=== PATIENT | female | born 1950 | race Caucasian/White ===

== ENCOUNTER 2016-04-10 12:12 | Inpatient (IN) | payer MEDICARE, MEDICAID ==
[2016-04-10] MEDS ORDERED: NS 0.9% 1000 ML* 1,000 ML IV ONE ×2 (13:07→17:01)
[2016-04-10] MEDS ORDERED: Albuterol/Ipratropium NEB.SOL* Albuterol 2.5 MG/Ipratropium 0.5 MG 3 ML INH ONE ×2 (13:07→15:07)
--- NOTE | 2016-04-10 14:00 | RAD ---
Indication: Cough, shortness of breath. 2 views of the chest are reviewed. No mediastinal shift is noted. Heart is of normal size and configuration. Lung orosco appear clear. There is flattening of the diaphragms is chronic pleural changes. IMPRESSION: No active cardiopulmonary disease is noted.
--- NOTE | 2016-04-10 14:02 | RAD ---
Indication: Cough, back pain. 3 views of lumbar spine are reviewed. No prior study is available for comparison. There is mild compression of the L3 superior endplate of less than 25%. There is also depression of the superior endplate of L1 of proximal a 25-50%. Age of these are undetermined. Diffuse osteopenia is noted. IMPRESSION: Endplate compression of the superior endplate of L3 of less than 25%. Compression of the L1 vertebra of 25-50%. Age of these are undetermined.
--- NOTE | 2016-04-10 14:03 | RAD ---
Indication: Cough, shortness of breath. 2 views of the sacrum and coccyx demonstrates no fracture. Diffuse osteopenia is noted. IMPRESSION: No definite fracture noted.
[2016-04-10 14:21] LABS: Hematocrit 45 % (35-47); Hemoglobin 14.8 g/dl (12.0-16.0); Mean Corpuscular HGB Conc 33 g/dl (31-36); Mean Corpuscular Hemoglobin 31 pg (27-31); Mean Corpuscular Volume 92 fL (80-97); Mean Platelet Volume 10 um3 (7.4-10.4); Red Blood Count 4.85 10^6/ul (4.0-5.4); Red Cell Distribution Width 14 % (10.5-15); White Blood Count 8.8 10^3/ul (3.5-10.8)
[2016-04-10 14:33] LABS: C Reactive Protein 7.85 mg/L (< 5.00); Calcium 10.1 mg/dL (8.6-10.3); EGFR African American 159.2 (>60); EGFR Non-African American 123.8 (>60); Globulin 3.9 g/dL (2-4); Potassium 3.6 mmol/L (3.5-5.0); Total Bilirubin 1.2 mg/dL (0.2-1.0); Total Protein 7.9 g/dL (6.4-8.9)
[2016-04-10 14:34] LABS: Troponin I 0.01 ng/mL (<0.04)
[2016-04-10] MEDS ORDERED: Adenosine* 3 MG/ML VIAL ONE (14:42)
[2016-04-10] MEDS ORDERED: Diltiazem IV* 5 MG/ML 5 ML VIAL (for loading dose/IV Push) (25 MG) ONE (14:50)
[2016-04-10] MEDS ORDERED: Diltiazem DRIP* 100 MG/100 ML ADDV.BAG IVPB ONE ×2 (14:50→15:11)
[2016-04-10] MEDS ORDERED: Diltiazem DRIP* 100 ML IVPB ONE (14:50)
[2016-04-10 15:22] LABS: PCO2 Arterial 84 mmHg (35-45)
[2016-04-10] MEDS ORDERED: Morphine INJ* 4 MG/ML 1 ML CARPUJECT ONE (15:32)
[2016-04-10] MEDS ORDERED: Amiodarone IV VIAL* 3 ML ONE (15:44)
[2016-04-10] MEDS ORDERED: Morphine INJ* 4 MG/ML 1 ML CARPUJECT IV ONE ×2 (15:45→16:01)
[2016-04-10] MEDS ORDERED: Amiodarone 150 MG IVPREMIX* 150 MG/100 ML BAG IV ONE (16:01)
[2016-04-10] MEDS ORDERED: Morphine INJ* 4 MG/ML 1 ML CARPUJECT IV PRN (16:19)
--- NOTE | 2016-04-10 16:41 | HP ---
H&P (Free Text) History and Physical: CRITICAL CARE MEDICINE DATE: 04/10/16 TIME: 1525 PRIMARY CARE PROVIDER: Saira REFERRING PROVIDER: Ben REASON/CHIEF COMPLAINT: sob HISTORY OF PRESENT ILLNESS: 65 F with chronic resp failure on 4L O2 at home followed by Dr. Delgado, presenting with back pain that she was trying to have evaluated as outpt but was getting worsening sob and evaluated in ED at family request. Initially had HR into 120s on arrival, and then went into 170s. She had labored breathing and ultimately placed on bipap. ED was concerned for intubation needs but pt declined. She was given adenosine revealing aflutter. She continued with 2:1 aflutter and resp failure. ICU consulted. Daughter with pt on my arrival. PHYSICAL EXAM: Vital Signs: Reviewed. Hr 162 aflutter. SBP ~100. MV on bipap 12/5 at 50% was about 20lpm. She had great volumes actual. Neurologic: she is otherwise thin and frail. Look smuch older then age. She is in mod distress. Able to communicate. Nonfocal. HEENT: anicteric, mm dry. Cardiovascular: very tachy, no m appreciated. Respiratory: just course f/low bl no wheeze now rales Abdomen: soft, nt Extremities: warm, very dry skin. Could not roll her to eval back better. Access: 2 per We discussed her ailments and plans. Given 4mg morphine at my request. Cardizem gtt was on at 5mg and we inc to 10mg. BP softer. Pt maintaining. Given amiodarone 150mg as we discussed potential cardioversion. Pt finally converted in ED to ST. Given another round of morphine for her comfort and maintained on bipap. Admit to ICU. REVIEW OF SYSTEMS: As per HPI. States she has been feeling unwell. Always with cough. Mild fever on admit. PAST MEDICAL HISTORY: As per HPI. COPD, Depression/anxiety. MEDICATIONS: Reviewed. ALLERGIES: NKDA SOCIAL HISTORY: Reviewed. Just moved to [place] about 1 year ago. Daughter present but states pts son (Juan Carlos) is proxy. FAMILY HISTORY: Noncontributory at present. LABS: Reviewed. IMAGING: Reviewed. CT reviewed from prior. CXR with chronic dz. ECG: regular narrow complex tachycardia. MEDICATIONS: Reviewed. ASSESSMENT: 65 F Acute on chronic hypercarbic respiratory failure COPD exac Aflutter with RVR Depression/anxiety PLAN: Neurologic: morphine for comfort now and dec sympathetics if able. xanax prn. MS otherwise pretty good. Cardiovascular: converted with amio. Cardizem po for now to maintain as able. Hopefully if resp improves hr will stabilize. Can consider echo needs and longer term concerns after she stabilizes. 1L NS and then try to reserve IVF. May need a cards eval and f/u ultimately. 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 bipap today and tonight. can come off for liquids tonight. steroid course to prednisone tomorrow for a short course although benefit unclear as not much wheeze. nebs atc. add spiriva to her regimen. Gastrointestinal: liquids and advance when ready. Renal/Metabolic: lytes ok. Infectious Disease: No real evidence to infection. f/u and can consider copd adjunctive abx but would rather reserve. Hematology: stable. hsq Endocrine: steroids. f/u glu Musculoskeletal: f/u back pain, but seems more chronic osteopenia related. Psych/Social: daughter updated and pt expresses understanding Supportive and preventative care as ordered. Vaccine: f/u eval SUP: po VTE prophylaxis: heparin Disposition: ICU tonight Code Status: DNR/DNI, discussed with pt and daughter present. Pt does consent to bipap use and cardioversion if needed. Critical Care Time: 75min Sincere Griffin DO
[2016-04-10] MEDS ORDERED: Adenosine* 3 MG/ML VIAL IV PUSH ONE ×2 (16:50→16:51)
[2016-04-10] MEDS ORDERED: Spiriva Inhaler DEVICE* 1 EACH DEVICE INH ONE (17:00)
[2016-04-10] MEDS: Enoxaparin(*) 40 MG/0.4 ML SYR SUBCUT SCH (17:56)
[2016-04-10] MEDS: Diltiazem TAB* 30 MG PO SCH (17:57)
[2016-04-10] MEDS: methylPREDNISolone SOD 40 MG* 1 ML VIAL IV SCH (17:57)
--- NOTE | 2016-04-10 18:36 | ED ---
Scott Kingston Matthew, scribed for Kayode Contreras MD on 04/10/16 at 1313 . Back Pain - HPI Summary HPI Summary: A 65 y/o female presents to the ED with lower back pain since 02/26/16. The pain is rated 7/10 in severity. She states that she was sitting at the computer when she felt a pop in the back. She denies any trauma or twisting that may have caused her pain. The pain worsens with with ambulation and changing position and improves lying down. Associated symptoms include SOB, dysuria, fever, and productive cough. The patient denies chills and chest pain. - History of Current Complaint Chief Complaint: EDBackInjuryPain Stated Complaint: BACK PAIN Time Seen by Provider: 04/10/16 13:00 Hx Obtained From: Patient Hx Last Menstrual Period: N/A Onset/Duration: Lasting Weeks, Still Present Onset/Duration: Started Weeks Ago, Atraumatic, Still Present Back Pain Location: Is Discrete @ - lower back Severity Initially: Moderate Severity Currently: Moderate Pain Intensity: 7 Pain Scale Used: 0-10 Numeric Alleviating Symptom(s): Position - lying down Associated Signs And Symptoms: Positive: Other - dysuria, fever, productive cough - Allergies/Home Medications Allergies/Adverse Reactions: Allergies Allergy/AdvReac Type Severity Reaction Status Date / Time No Known Allergies Allergy Verified 04/10/16 15:43 PMH/Surg Hx/FS Hx/Imm Hx GI History: Reports: Hx Gastroesophageal Reflux Disease Psychiatric History: Reports: Hx Depression Infectious Disease History: No Infectious Disease History: Denies: Traveled Outside the [place] in Last 30 Days - Family History Family History: FHx of breast CA, CAD, Lung CA - Social History Alcohol Use: None Substance Use Type: Reports: None Smoking Status (MU): Light Every Day Tobacco Smoker Review of Systems Positive: Fever. Negative: Chills Eyes: Negative ENT: Negative Cardiovascular: Negative Negative: Chest Pain Positive: Shortness Of Breath, Cough - productive Gastrointestinal: Negative Positive: dysuria Musculoskeletal: Negative Skin: Negative Neurological: Negative Psychological: Normal All Other Systems Reviewed And Are Negative: Yes Physical Exam - Summary Physical Exam Summary: VITAL SIGNS: Reviewed. GENERAL: Patient is a cachectic female who is lying comfortably in the stretcher. HEAD AND FACE: Normocephalic and atraumatic. EYES: PERRLA, EOMI x 2, No injected conjunctiva. EARS: Hearing grossly intact. Ear canals and tympanic membranes WNL MOUTH: Dry oral mucosa. NECK: Supple, trachea is midline, no adenopathy, no JVD, no carotid bruit. CHEST: Symmetric, No intercostal or abdominal retraction, LUNGS: Mild diffuse bilateral wheezing and decreased breath sounds.No crackles. CVS: RRR,, S1 and S2 present, no murmurs or gallops appreciated. ABDOMEN: Soft, non-tender. No signs of distention. Positive BS. No rebound, no guarding, and no masses palpated. EXTREMITIES: FROM in all major joints, no edema, no cyanosis or clubbing. NEURO: Alert and oriented x 3. No acute neurological deficits. Speech is normal and follows commands. SKIN: Dry and warm Back: There is no ecchymosis, no deformity, no paraspinal muscle tenderness No vertebral tenderness. No saddle anesthesia. Refuses rectal exam. Straight test is negative. Triage Information Reviewed: Yes Vital Signs On Initial Exam: Initial Vitals Temp Pulse Resp BP Pulse Ox 100.2 F 112 24 103/77 95 04/10/16 12:42 04/10/16 12:42 04/10/16 12:42 04/10/16 12:42 04/10/16 12:42 Vital Signs Reviewed: Yes Diagnostics - Vital Signs Vital Signs Temp Pulse Resp BP Pulse Ox 04/10/16 12:42 100.2 F 112 24 103/77 95 - Laboratory Result Diagrams: 04/10/16 14:07 04/10/16 14:07 Lab Statement: Any lab studies that have been ordered have been reviewed, and results considered in the medical decision making process. - Radiology CXR Xray Interpretation: No Acute Changes - IMPRESSION: No active cardiopulmonary disease is noted. Radiology Interpretation Completed By: Radiologist L-Spine XR Xray Interpretation: Positive (See Comments) - IMPRESSION: Endplate compression of the superior endplate of L3 of less than 25%. Compression of the L1 vertebra of 25-50%. Age of these are undetermined. Radiology Interpretation Completed By: Radiologist Sacrum and Coccyx XR Xray Interpretation: No Acute Changes - IMPRESSION: No definite fracture noted. Radiology Interpretation Completed By: Radiologist - EKG 14:35 Cardiac Rate: Tachycardia - 169 bpm EKG Interpretation: Wide Complex tachycardia; No ST elevation 14:41 EKG Rhythm: Atrial Flutter Back Pain Course/Dx - Course Assessment/Plan: Blood work WNL except lymphocytes of 14.4. Creatinine of 0.5, glucose 126, C-reactive protein of 7.8, and BNP of 146. Initially on physical exam the patient tis tachycardic, hypoxic, and in the physical exam the patient had bilateral lower lobe crackles and wheezing. The patient was started on a DuoNeb and given IV fluids. The symptoms were improving. I was told by the nurse that the heart rate was increasing and we did another EKG and the HR increased to 172 bpm. At this time we were unable to identify the true rhythm since the patient was going very fast. Therefore I decided to give adenosine to slow down the HR. After she was given adenosine we noticed the patient was in atrial flutter. Th patient was given Cardizem and she increased her respiratory and became more hypoxic. I explained the situation to the patient who was still A&Ox3. I wanted to intubate the patient, but she refused. Therefore, the patient placed in a non-rebreather mask and I requested a bipap machine. We order ABG and found a pH 7.11, PCo2 of 84, pO2 122, and O2 sat of 98. Therefore the patient would benefit from a bipap machine. Discussed my findings with Dr. Griffin from the ICU and he agree treatment and he also requested amiodarone 150 MG. After the amiodarone the patients symptoms improved and she will be transferred. At this point the patient is more stable, but still critical. - Diagnoses Differential Diagnosis/HQI/PQRI: Positive: Fracture, Herniated Disc, Strain, Sprain Provider Diagnoses: Atrial flutter, Lumbar stress fracture, COPD exacerbation, Hypercapnia - Provider Notifications Discussed Care of Patient With: Dr. Griffin (ICU) at 15:11 -- Notified of patient's history and will come to evaluate the patient. - Critical Care Time Critical Care Time: 75-104 min Discharge - Discharge Plan Condition: Critical Disposition: ADMITTED TO [facility] documentation as recorded by the Scott elliott Matthew accurately reflects the service I personally performed and the decisions made by me, Kayode Contreras MD.
[2016-04-10] MEDS: Albuterol/Ipratropium NEB.SOL* Albuterol 2.5 MG/Ipratropium 0.5 MG 3 ML INH SCH (21:55)
[2016-04-11] MEDS: Diltiazem TAB* 30 MG PO SCH ×4 (00:30→17:28)
[2016-04-11] MEDS: Albuterol/Ipratropium NEB.SOL* Albuterol 2.5 MG/Ipratropium 0.5 MG 3 ML INH SCH ×4 (01:50→20:19)
[2016-04-11] MEDS: methylPREDNISolone SOD 40 MG* 1 ML VIAL IV SCH (02:23)
[2016-04-11 05:40] LABS: BUN/Creatinine Ratio 24.5 (8-20); Calcium 9.3 mg/dL (8.6-10.3); EGFR Non-African American 126.7 (>60); Magnesium 1.7 mg/dL (1.9-2.7); Phosphorus 3.5 mg/dL (2.5-5.0); Potassium 4.4 mmol/L (3.5-5.0)
[2016-04-11 05:43] LABS: Troponin I 0.01 ng/mL (<0.04)
[2016-04-11 05:53] LABS: Hematocrit 35 % (35-47); Hemoglobin 11.3 g/dl (12.0-16.0); Mean Corpuscular HGB Conc 32 g/dl (31-36); Mean Corpuscular Hemoglobin 30 pg (27-31); Mean Corpuscular Volume 93 fL (80-97); Mean Platelet Volume 10 um3 (7.4-10.4); Red Blood Count 3.77 10^6/ul (4.0-5.4); Red Cell Distribution Width 14 % (10.5-15); White Blood Count 3.7 10^3/ul (3.5-10.8)
[2016-04-11 06:54] LABS: Urine Bacteria Absent (Absent); Urine Bilirubin Negative (Negative); Urine Glucose Negative (Negative); Urine Nitrite Negative (Negative)
[2016-04-11] MEDS: predniSONE TAB* 20 MG PO SCH (08:51)
[2016-04-11] MEDS: ALPRAZolam TAB* 0.25 MG PO PRN ×2 (08:51→18:08)
[2016-04-11] MEDS: Tiotropium CAP.INH* CAP.INH/18 MCG (USE ORDER SET !) INH SCH (08:52)
[2016-04-11] MEDS ORDERED: Magnesium Sulfate 2 GM IV* 2 GM/50 ML BAG IVPB ONE (10:06)
[2016-04-11] MEDS: Omeprazole CAP* 20 MG PO SCH (10:30)
--- NOTE | 2016-04-11 11:01 | PN ---
Progress Note - Progress Note Note: CRITICAL CARE MEDICINE DATE: 04/11/16 TIME: 900 PHYSICAL EXAM: Vital Signs: Reviewed. Hr 70s. 4-6L Neurologic: thin and frail. baseline. HEENT: anicteric, mm better Cardiovascular: reg, no m appreciated. Respiratory: coarse without wheeze Abdomen: soft, nt Extremities: warm, dry skin. Access: per LABS: Reviewed. IMAGING: Reviewed. MEDICATIONS: Reviewed. ASSESSMENT: 65 F - much better Acute on chronic hypercarbic respiratory failure COPD exac Aflutter with RVR - converted to NSR post amio Depression/anxiety GERD PLAN: Neurologic: stable. xanax, morphine prn. Cardiovascular: converted with amio. NSR. On cardizem currently but may not ultimately need. Can f/u cardiac needs and determine if anticoagulation needs. Check echo if not grave disturbance given her co-morbidity may not warrant anticoag anyway. Respiratory: COPD exac better. no need for ppv. copd adjunctives. wean towards home O2. known to pulm and needs f/u Gastrointestinal: po diet. oupt ppi Renal/Metabolic: lytes ok. Infectious Disease: flu neg. no abx needs Hematology: stable. hsq Endocrine: steroids po. Musculoskeletal: pt eval. Psych/Social: resume zoloft. pt expresses understanding. may need placement. social work eval Supportive and preventative care as ordered. Vaccine: f/u eval SUP: po VTE prophylaxis: heparin Disposition: floor with tele for another 24h and then could dc tele at least Code Status: DNR/DNI. Critical Care Time: 25min Sincere Griffin DO
[2016-04-11] MEDS: Acetaminophen TAB* 325 MG PO PRN (12:16)
[2016-04-11] MEDS ORDERED: Mouth Piece, Nicotine* 1 EACH CARTRIDGE INH PRN (14:55)
[2016-04-11] MEDS: Nicotine Inhaler* 10 MG AMP INH PRN ×2 (17:01→20:57)
[2016-04-11] MEDS: Enoxaparin(*) 40 MG/0.4 ML SYR SUBCUT SCH (17:28)
[2016-04-11] MEDS: Saline NASAL SPRAY 0.65%* BTL BOTH NARES PRN (18:04)
[2016-04-11] MEDS: Sertraline* 50 MG TAB PO SCH (18:12)
[2016-04-12] MEDS: Diltiazem TAB* 30 MG PO SCH ×5 (00:51→18:56)
[2016-04-12] MEDS: Albuterol/Ipratropium NEB.SOL* Albuterol 2.5 MG/Ipratropium 0.5 MG 3 ML INH SCH ×2 (03:16→08:17)
[2016-04-12] MEDS: Omeprazole CAP* 20 MG PO SCH (05:35)
[2016-04-12] MEDS: Acetaminophen TAB* 325 MG PO PRN (06:41)
[2016-04-12] MEDS: Sertraline* 50 MG TAB PO SCH (07:58)
[2016-04-12] MEDS: predniSONE TAB* 20 MG PO SCH (07:58)
[2016-04-12] MEDS: Saline NASAL SPRAY 0.65%* BTL BOTH NARES PRN ×2 (07:58→16:53)
[2016-04-12] MEDS: Tiotropium CAP.INH* CAP.INH/18 MCG (USE ORDER SET !) INH SCH (08:40)
[2016-04-12] MEDS: Spiriva Inhaler DEVICE* 1 EACH DEVICE INH SCH (08:40)
[2016-04-12] MEDS: Nicotine Inhaler* 10 MG AMP INH PRN ×2 (09:42→16:52)
[2016-04-12] MEDS: ALPRAZolam TAB* 0.25 MG PO PRN (11:57)
[2016-04-12] MEDS ORDERED: Morphine INJ* 2 MG/ML 1 ML CARPUJECT IV PRN (11:59)
[2016-04-12] MEDS ORDERED: Magnesium Sulfate 2 GM IV* 2 GM/50 ML BAG IVPB ONE (14:48)
--- NOTE | 2016-04-12 15:20 | PN ---
Subjective Date of Service: 04/12/16 Interval History: Pt is feeling well. She states she feels close to her baseline. No SOB at this time. She has been coughing up some mucous but no more than usual. Objective Active Medications: Acetaminophen (Tylenol Tab*) 650 mg PO Q6H PRN PRN Reason: FEVER Last Admin: 04/12/16 06:41 Dose: 650 mg Albuterol/Ipratropium (Duoneb Neb.Erica*) 1 neb INH Q6H PRN PRN Reason: SOB/WHEEZING Device (Nicotine Mouth Piece*) 1 each INH DAILY PRN PRN Reason: CRAVING. MULTI-USE DEVICE Last Admin: 04/11/16 17:01 Dose: 1 each Device (Tiotropium Inhaler Device*) 1 each INH DAILY [facility] Last Admin: 04/12/16 08:40 Dose: 1 each Diltiazem HCl (Cardizem Tab*) 30 mg PO Q6H [facility] Last Admin: 04/12/16 12:34 Dose: 30 mg Enoxaparin Sodium (Lovenox(*)) 40 mg SUBCUT Q24H [facility] Last Admin: 04/11/16 17:28 Dose: 40 mg Lorazepam (Ativan Tab(*)) 0.5 mg PO Q6H PRN PRN Reason: ANXIETY Morphine Sulfate (Morphine Inj (Syringe)*) 2 mg IV Q4H PRN PRN Reason: PAIN Last Admin: 04/12/16 12:34 Dose: 2 mg Nicotine (Nicotine Inhaler*) 10 mg INH Q2H PRN PRN Reason: CRAVING Last Admin: 04/12/16 09:42 Dose: 10 mg Omeprazole (Prilosec Cap*) 20 mg PO DAILY@0600 [facility] Last Admin: 04/12/16 05:35 Dose: 20 mg Prednisone (Deltasone Tab*) 40 mg PO DAILY [facility] Last Admin: 04/12/16 07:58 Dose: 40 mg Sertraline HCl (Zoloft*) 50 mg PO DAILY [facility] Last Admin: 04/12/16 07:58 Dose: 50 mg Sodium Chloride (Sodium Chloride 0.65% Nasal [place]*) 1 spray BOTH NARES Q4H PRN PRN Reason: DISCOMFORT Last Admin: 04/12/16 07:58 Dose: 1 spray Tiotropium [place] (Spiriva Cap.Inh*) 1 cap INH DAILY [facility] Last Admin: 04/12/16 08:40 Dose: 1 cap Vital Signs 04/11/16 04/11/16 04/11/16 16:08 18:08 19:44 Temperature 97.6 F 99.4 F Pulse Rate 114 90 Respiratory 24 22 16 Rate Blood Pressure 113/66 112/64 (mmHg) O2 Sat by Pulse 93 94 Oximetry 04/11/16 04/11/16 04/11/16 20:00 20:08 20:19 Temperature Pulse Rate 81 Respiratory 18 20 18 Rate Blood Pressure (mmHg) O2 Sat by Pulse 97 Oximetry 04/12/16 04/12/16 04/12/16 00:06 00:48 04:08 Temperature 98.4 F 98.5 F Pulse Rate 81 81 Respiratory 16 16 Rate Blood Pressure 94/50 92/62 105/55 (mmHg) O2 Sat by Pulse 100 99 Oximetry 04/12/16 04/12/16 04/12/16 07:15 07:25 07:35 Temperature 98.0 F Pulse Rate 89 86 Respiratory 16 22 Rate Blood Pressure 120/78 (mmHg) O2 Sat by Pulse 87 90 Oximetry 04/12/16 04/12/16 04/12/16 08:19 11:22 11:26 Temperature 98.3 F Pulse Rate 79 107 Respiratory 16 22 Rate Blood Pressure 119/57 (mmHg) O2 Sat by Pulse 99 82 82 Oximetry 04/12/16 04/12/16 04/12/16 11:57 12:34 13:34 Temperature Pulse Rate Respiratory 24 20 22 Rate Blood Pressure (mmHg) O2 Sat by Pulse Oximetry Oxygen Devices in Use Now: Nasal Cannula - 8L Appearance: Middle aged female who appears much older than her stated age sitting on the edge of the bed, NAD Eyes: No Scleral Icterus Ears/Nose/Mouth/Throat: Mucous Membranes Moist Respiratory: Symmetrical Chest Expansion and Respiratory Effort, Clear to Auscultation - markedly decreased breath sounds in all lung orosco Cardiovascular: NL Sounds; No Murmurs; No JVD, RRR, No Edema Abdominal: NL Sounds; No Tenderness; No Distention Extremities: No Clubbing, Cyanosis Skin: No Rash or Ulcers, No Nodules or Sclerosis Neurological: Alert and Oriented x 3 Result Diagrams: 04/11/16 04:59 04/11/16 04:59 Microbiology and Other Data: Microbiology 03/04/17 06:10 Urine Culture - Final Urine 04/10/16 17:15 Aerobic Blood Culture - Preliminary Blood Venous No Growth Day 1 Anaerobic Blood Culture - Preliminary No Growth Day 1 04/10/16 16:45 Aerobic Blood Culture - Preliminary Blood Venous No Growth Day 1 Anaerobic Blood Culture - Preliminary No Growth Day 1 04/10/16 17:25 Nasal Screen MRSA (PCR)(DAVON) - Final Nasal Mrsa Negative 04/10/16 17:43 Influenza Types A,B Antigen (DAVON) - Final Nasal Specimen received for Influenza A/B Molecular testing Assess/Plan/Problems-Billing Ms Costa is a 65 yo F who has a h/o COPD and anxiety who presented to the ER for c/o back pain and was found to be in acute on chronic hypercarbic respiratory failure and rapid atrial flutter. - Patient Problems (1) Acute and chronic respiratory failure with hypercapnia Current Visit: Yes Status: Acute Code(s): J96.22 - ACUTE AND CHRONIC RESPIRATORY FAILURE WITH HYPERCAPNIA SNOMED Code(s): 521222711 Comment: Likely partially precipitated by her rapid atrial flutter. She is quite improved though now requiring more supplemental O2 than her baseline 4L. Will try to aggressively wean down her O2. Continue prednisone-start taper after tomorrow's dose. (2) Atrial flutter Current Visit: Yes Status: Acute Code(s): I48.92 - UNSPECIFIED ATRIAL FLUTTER SNOMED Code(s): 8352689 Comment: Pt has remained in NSR since converting on amiodarone. Will get echo tomorrow. I have discussed anticoagulation wtih the patient given her CHADS2-vasc score is 2. She wants to think about going on anticoagulation before making the decision- we discussed the options including coumadin vs NOACs. She is leaning towards eliquis. (3) Anxiety Current Visit: Yes Status: Acute Code(s): F41.9 - ANXIETY DISORDER, UNSPECIFIED SNOMED Code(s): 43189890 Comment: With depression. Continue zoloft. Try prn ativan instead of xanax. (4) Back pain Current Visit: Yes Status: Acute Code(s): M54.9 - DORSALGIA, UNSPECIFIED SNOMED Code(s): 583102522 Comment: Unclear what has caused her pain. Continue prn pain control. (5) DVT prophylaxis Current Visit: Yes Status: Acute Code(s): PQB3403 - SNOMED Code(s): 641921038 Comment: oz (6) DNR (do not resuscitate) Current Visit: Yes Status: Acute
[2016-04-12] MEDS ORDERED: HYDROcodone/ACETAMIN 5-325 MG* 1 TAB PO PRN (15:32)
[2016-04-12] MEDS: Enoxaparin(*) 40 MG/0.4 ML SYR SUBCUT SCH (16:52)
[2016-04-12] MEDS: Albuterol/Ipratropium NEB.SOL* Albuterol 2.5 MG/Ipratropium 0.5 MG 3 ML INH PRN (20:28)
[2016-04-13] MEDS: Diltiazem TAB* 30 MG PO SCH ×4 (00:24→18:28)
[2016-04-13] MEDS: Albuterol/Ipratropium NEB.SOL* Albuterol 2.5 MG/Ipratropium 0.5 MG 3 ML INH PRN ×3 (03:54→12:55)
[2016-04-13 06:16] LABS: BUN/Creatinine Ratio 32.1 (8-20); Calcium 9.1 mg/dL (8.6-10.3); EGFR African American 148.9 (>60); EGFR Non-African American 115.8 (>60); Magnesium 1.8 mg/dL (1.9-2.7); Potassium 3.8 mmol/L (3.5-5.0)
[2016-04-13] MEDS: Omeprazole CAP* 20 MG PO SCH (06:20)
[2016-04-13] MEDS: Tiotropium CAP.INH* CAP.INH/18 MCG (USE ORDER SET !) INH SCH (07:54)
[2016-04-13] MEDS: predniSONE TAB* 20 MG PO SCH (09:15)
[2016-04-13] MEDS: Spiriva Inhaler DEVICE* 1 EACH DEVICE INH SCH (09:16)
[2016-04-13] MEDS: Sertraline* 50 MG TAB PO SCH (09:16)
[2016-04-13] MEDS: Nicotine Inhaler* 10 MG AMP INH PRN ×2 (09:20→19:53)
[2016-04-13] MEDS: Saline NASAL SPRAY 0.65%* BTL BOTH NARES PRN (10:18)
[2016-04-13] MEDS: Acetaminophen TAB* 325 MG PO PRN (10:24)
[2016-04-13] MEDS: LORazepam TAB(*) 0.5 MG PO PRN (11:49)
[2016-04-13] MEDS ORDERED: Morphine INJ* 2 MG/ML 1 ML CARPUJECT IV ONE (12:04)
[2016-04-13] MEDS ORDERED: Magnesium Sulfate 2 GM IV* 2 GM/50 ML BAG IVPB ONE (14:30)
--- NOTE | 2016-04-13 15:09 | PN ---
Subjective Date of Service: 04/13/16 Interval History: Pt is feeling ok currently. She had very low O2 saturations earlier today and panicked. No significant cough or sputum. Objective Active Medications: Acetaminophen (Tylenol Tab*) 650 mg PO Q6H PRN PRN Reason: FEVER Last Admin: 04/13/16 10:24 Dose: 650 mg Hydrocodone Bitart/Acetaminophen ([place] 5-325 Tab*) 1 tab PO Q4H PRN PRN Reason: PAIN Last Admin: 04/12/16 16:53 Dose: 1 tab Albuterol/Ipratropium (Duoneb Neb.Erica*) 1 neb INH Q6H PRN PRN Reason: SOB/WHEEZING Last Admin: 04/13/16 12:55 Dose: 1 neb Device (Nicotine Mouth Piece*) 1 each INH DAILY PRN PRN Reason: CRAVING. MULTI-USE DEVICE Last Admin: 04/11/16 17:01 Dose: 1 each Device (Tiotropium Inhaler Device*) 1 each INH DAILY CRISELDA Last Admin: 04/13/16 09:16 Dose: 1 each Diltiazem HCl (Cardizem Tab*) 30 mg PO Q6H [facility] Last Admin: 04/13/16 12:21 Dose: 30 mg Enoxaparin Sodium (Lovenox(*)) 40 mg SUBCUT Q24H [facility] Last Admin: 04/12/16 16:52 Dose: 40 mg Magnesium Sulfate (Magnesium Sulfate 2 Gm Iv*) 2 gm in 50 mls @ 50 mls/hr IVPB ONCE ONE Stop: 04/13/16 15:29 Lorazepam (Ativan Tab(*)) 0.5 mg PO Q6H PRN PRN Reason: ANXIETY Last Admin: 04/13/16 11:49 Dose: 0.5 mg Nicotine (Nicotine Inhaler*) 10 mg INH Q2H PRN PRN Reason: CRAVING Last Admin: 04/13/16 09:20 Dose: 10 mg Omeprazole (Prilosec Cap*) 20 mg PO DAILY@0600 [facility] Last Admin: 04/13/16 06:20 Dose: 20 mg Prednisone (Deltasone Tab*) 40 mg PO DAILY [facility] Last Admin: 04/13/16 09:15 Dose: 40 mg Sertraline HCl (Zoloft*) 50 mg PO DAILY [facility] Last Admin: 04/13/16 09:16 Dose: 50 mg Sodium Chloride (Sodium Chloride 0.65% Nasal [place]*) 1 spray BOTH NARES Q4H PRN PRN Reason: DISCOMFORT Last Admin: 04/13/16 10:18 Dose: 1 spray Tiotropium [place] (Spiriva Cap.Inh*) 1 cap INH DAILY CRISELDA Last Admin: 04/13/16 07:54 Dose: 1 cap Vital Signs 04/12/16 04/12/16 04/12/16 15:25 16:17 16:53 Temperature 98.1 F Pulse Rate 95 Respiratory 18 26 Rate Blood Pressure 112/70 (mmHg) O2 Sat by Pulse 96 94 Oximetry 04/12/16 04/12/16 04/12/16 18:53 19:40 20:00 Temperature 97.6 F Pulse Rate 98 87 Respiratory 24 24 18 Rate Blood Pressure 138/81 (mmHg) O2 Sat by Pulse 92 91 Oximetry 04/12/16 04/13/16 04/13/16 23:26 00:11 01:08 Temperature 98.2 F Pulse Rate 89 87 Respiratory 16 14 Rate Blood Pressure 108/67 112/66 (mmHg) O2 Sat by Pulse 97 96 Oximetry 04/13/16 04/13/16 04/13/16 03:22 03:55 07:54 Temperature 98.0 F 98.0 F Pulse Rate 99 118 106 Respiratory 16 22 22 Rate Blood Pressure 128/81 147/67 (mmHg) O2 Sat by Pulse 88 7 63 Oximetry 04/13/16 04/13/16 04/13/16 07:57 08:30 11:25 Temperature 97.6 F Pulse Rate 111 103 Respiratory 20 20 20 Rate Blood Pressure 147/87 (mmHg) O2 Sat by Pulse 93 74 Oximetry 04/13/16 04/13/16 04/13/16 11:49 12:15 13:01 Temperature Pulse Rate 90 Respiratory 18 24 22 Rate Blood Pressure (mmHg) O2 Sat by Pulse 88 Oximetry Oxygen Devices in Use Now: Nasal Cannula - 8L-88% Appearance: Middle aged female who appears older than her stated age, sitting on the edge of the bed, NAD Eyes: No Scleral Icterus Ears/Nose/Mouth/Throat: Mucous Membranes Moist Respiratory: Symmetrical Chest Expansion and Respiratory Effort, - - Markedly decreased breath sounds in all lung [place], no crackles Cardiovascular: NL Sounds; No Murmurs; No JVD, RRR, No Edema Abdominal: NL Sounds; No Tenderness; No Distention Extremities: No Clubbing, Cyanosis Skin: No Rash or Ulcers, No Nodules or Sclerosis Neurological: Alert and Oriented x 3 Result Diagrams: 04/11/16 04:59 04/13/16 05:32 Microbiology and Other Data: Microbiology 04/11/16 06:10 Urine Culture - Final Urine 04/10/16 17:15 Aerobic Blood Culture - Preliminary Blood Venous No Growth Day 1 Anaerobic Blood Culture - Preliminary No Growth Day 1 04/10/16 16:45 Aerobic Blood Culture - Preliminary Blood Venous No Growth Day 1 Anaerobic Blood Culture - Preliminary No Growth Day 1 04/10/16 17:25 Nasal Screen MRSA (PCR)(DAVON) - Final Nasal Mrsa Negative 04/10/16 17:43 Influenza Types A,B Antigen (DAVON) - Final Nasal Specimen received for Influenza A/B Molecular testing Assess/Plan/Problems-Billing Ms Costa is a 65 yo F who has a h/o COPD and anxiety who presented to the ER for c/o back pain and was found to be in acute on chronic hypercarbic respiratory failure and rapid atrial flutter. - Patient Problems (1) Acute and chronic respiratory failure with hypercapnia Current Visit: Yes Status: Acute Code(s): J96.22 - ACUTE AND CHRONIC RESPIRATORY FAILURE WITH HYPERCAPNIA SNOMED Code(s): 235518349 Comment: Pt is improving but slowly. She panics and and her breathing worsens. She is now on 4L doing ok. We discussed using morphine for air hunger and she agrees. I think she may be hospice eligible though I am not sure if she is on board with this idea yet. She did confirm that she would not want CPR or intubation. Start tapering prednisone. (2) Atrial flutter Current Visit: Yes Status: Acute Code(s): I48.92 - UNSPECIFIED ATRIAL FLUTTER SNOMED Code(s): 8778099 Comment: Pt remains in NSR. Continue diltiazem and start eliquis. Pt agrees to starting anticoagulation tonight. (3) Anxiety Current Visit: Yes Status: Acute Code(s): F41.9 - ANXIETY DISORDER, UNSPECIFIED SNOMED Code(s): 52975605 Comment: Continue zoloft and prn ativan. (4) Back pain Current Visit: Yes Status: Acute Code(s): M54.9 - DORSALGIA, UNSPECIFIED SNOMED Code(s): 265258586 Comment: Unclear what has caused her pain. Continue prn pain control. (5) DVT prophylaxis Current Visit: Yes Status: Acute Code(s): XPM3513 - SNOMED Code(s): 900248312 Comment: roberto (6) DNR (do not resuscitate) Current Visit: Yes Status: Acute
[2016-04-13] MEDS ORDERED: Morphine ORAL.SOLN 10 mg* 2 MG/ML UDC 5 ml PO PRN (15:13)
[2016-04-13] MEDS: Mometasone/Formoter 200/5 MDI INH SCH (21:14)
[2016-04-13] MEDS: Apixaban* 5 MG TAB PO SCH (21:14)
[2016-04-14] MEDS: Diltiazem TAB* 30 MG PO SCH (00:14)
[2016-04-14] MEDS: Omeprazole CAP* 20 MG PO SCH (06:13)
[2016-04-14] MEDS: Saline NASAL SPRAY 0.65%* BTL BOTH NARES PRN (09:02)
[2016-04-14] MEDS: Nicotine Inhaler* 10 MG AMP INH PRN ×2 (09:03→17:55)
[2016-04-14] MEDS: Acetaminophen TAB* 325 MG PO PRN (09:05)
[2016-04-14] MEDS: Apixaban* 5 MG TAB PO SCH ×2 (09:05→20:49)
[2016-04-14] MEDS: Diltiazem CD CAP* 120 MG PO SCH (09:05)
[2016-04-14] MEDS: Sertraline* 50 MG TAB PO SCH (09:05)
[2016-04-14] MEDS: predniSONE TAB* 10 MG PO SCH (09:05)
[2016-04-14] MEDS: Mometasone/Formoter 200/5 MDI INH SCH ×2 (09:20→20:27)
[2016-04-14] MEDS: Tiotropium CAP.INH* CAP.INH/18 MCG (USE ORDER SET !) INH SCH (09:20)
[2016-04-14] MEDS: Spiriva Inhaler DEVICE* 1 EACH DEVICE INH SCH (09:21)
--- NOTE | 2016-04-14 11:47 | ECHO ---
Patient: JACKELINE KATHLEEN [facility] Rec#: [id number] : 1950 Date: 04/14/2016 Age: 65y Height: 162.56 cm / 64.0 in Weight: 43.54 kg / 96.0 lbs Sex: F BSA: 1.43 Room#: 443 Admit Date#: 04/10/2016 Type: Inpatient Referring: Claire Pozo DO Reading: David Martinez MD Information Technology Internship: Lauryn Randolph ROSE CC: CHAD JULIO Transthoracic Echocardiogram Indication: A-flutter/resp.abn. BP: 130/75 HR: 91 Rhythm: NSR with PACs Findings History: COPD with home oxygen,anxiety,a-flutter. Technical Comments: The study is technically limited due to the patient's history of COPD. Completed at 0901. The study was technically limited due to the patient's inability to lay in the left lateral decubitus position. Left Ventricle: The left ventricular chamber size is normal. Mild global hypokinesis of the left ventricle is observed. There is mildly decreased left ventricular systolic function. The estimated ejection fraction is 45-50%. There is no consistent Doppler evidence of clinically significant diastolic dysfunction. Left Atrium: The left atrium is normal in size. Right Ventricle: The right ventricular cavity size is normal. The right ventricular global systolic function is mildly reduced. Right Atrium: The right atrial cavity size is normal. Aortic Valve: The aortic valve is trileaflet. There is no evidence of aortic regurgitation. There is no evidence of aortic stenosis. Mitral Valve: The mitral valve leaflets appear normal. There is a trace of mitral regurgitation. There is no evidence of mitral stenosis. Tricuspid Valve: The tricuspid valve leaflets are normal. There is mild to moderate tricuspid regurgitation. The right ventricular systolic pressure is estimated to be 70-75 mmHg. There is evidence of moderate to severe pulmonary hypertension. There is no tricuspid stenosis. Pulmonic Valve: The pulmonic valve appears normal. There is no evidence of pulmonic regurgitation. There is no pulmonic stenosis. Pericardium: The pericardium appears normal. Aorta: There is no dilatation of the ascending aorta. There is no dilatation of the aortic arch. There is no dilation of the aortic root. Pulmonary Artery: The main pulmonary artery is not well visualized. Venous: The inferior vena cava is dilated. There is an approximate 50% respiratory change in the inferior vena cava dimension. Conclusions Mild global hypokinesis of the left ventricle is observed. There is mildly decreased left ventricular systolic function. The estimated ejection fraction is 45-50%. The right ventricular global systolic function is mildly reduced. There is no evidence of aortic regurgitation. There is a trace of mitral regurgitation. There is mild to moderate tricuspid regurgitation. There is evidence of moderate to severe pulmonary hypertension. The right ventricular systolic pressure is estimated to be 70-75 mmHg. The pericardium appears normal. Measurements Name Value Normal Range RVIDd (AP) 2D 2.4 cm (0.9 - 2.6) RVDdMajor (2D) 2.9 cm (2.2 - 4.4) RAd ISD 4CH 3.3 cm (3.4 - 4.9) RA (A4C)W 3.2 cm (2.9 - 4.6) IVSd (2D) 0.8 cm (0.6 - 1) LVPWd (2D) 0.7 cm (0.6 - 1) LVIDd (2D) 3.7 cm (3.6 - 5.4) LVIDs (2D) 2.4 cm - LV FS (2D) 35 % (25 - 45) Aortic Annulus 1.8 cm (1.4 - 2.6) Ao root diameter (2D) 2.8 cm (2.1 - 3.5) Ascending Ao 2.2 cm (2.1 - 3.4) Aortic arch 1.6 cm (1.8 - 3.4) Descending Ao 0.8 cm - LA dimension (AP) 2D 2.3 cm (2.3 - 3.8) LAd ISD 4CH 3.3 cm (2.9 - 5.3) LA ISD 4CH W 3.1 cm (2.5 - 4.5) Name Value Normal Range LA ESV SP 4CH (A/L) 18 ml - LA ESV SP 2CH (A/L) 19 ml - LA ESV BP (A/L) 19 ml - LA ESV BP (A/L) index 13.18 ml/m2 - LA ESV SP 4CH (MOD) 16 ml - LA ESV SP 2CH (MOD) 17 ml - Name Value Normal Range MV E-wave Vmax 0.7 m/sec - MV deceleration time 138 msec - MV A-wave Vmax 0.9 m/sec - MV E:A ratio 0.79 ratio - LV septal e' Vmax 0.07 m/sec - LV lateral e' Vmax 0.08 m/sec - LV E:e' septal ratio 10 ratio - LV E:e' lateral ratio 8.75 ratio - Name Value Normal Range AV Vmax 1 m/sec - AV VTI 17.7 cm - AV peak gradient 4.26 mmHg - AV mean gradient 2.26 mmHg - LVOT Vmax 0.9 m/sec - LVOT VTI 18 cm - LVOT peak gradient 3.38 mmHg - LVOT mean gradient 1.43 mmHg - Name Value Normal Range TR Vmax 3.8 m/sec - TR peak gradient 56 mmHg - RAP 8 mmHg - RVSP 64 mmHg - IVC diameter 2.2 cm - Name Value Normal Range PV Vmax 0.7 m/sec - PV peak gradient 1.78 mmHg -
--- NOTE | 2016-04-14 13:52 | PN ---
Subjective Date of Service: 04/14/16 Interval History: HOSPITALIST PROGRESS NOTE Patient seen and examined at bedside. She feels better today with less dyspnea. Still anxious, but able to control it better. Productive cough with greenish sputum. Back pain is resolved. Family History: Unchanged from Admission Social History: Unchanged from Admission Past Medical History: Unchanged from Admission Objective Active Medications: Acetaminophen (Tylenol Tab*) 650 mg PO Q6H PRN PRN Reason: FEVER Last Admin: 04/14/16 09:05 Dose: 650 mg Hydrocodone Bitart/Acetaminophen ([place] 5-325 Tab*) 1 tab PO Q4H PRN PRN Reason: PAIN Last Admin: 04/12/16 16:53 Dose: 1 tab Albuterol/Ipratropium (Duoneb Neb.Erica*) 1 neb INH Q6H PRN PRN Reason: SOB/WHEEZING Last Admin: 04/13/16 12:55 Dose: 1 neb Apixaban (Eliquis*) 5 mg PO BID PENDING SALE TO [facility] Last Admin: 04/14/16 09:05 Dose: 5 mg Device (Nicotine Mouth Piece*) 1 each INH DAILY PRN PRN Reason: CRAVING. MULTI-USE DEVICE Last Admin: 04/11/16 17:01 Dose: 1 each Device (Tiotropium Inhaler Device*) 1 each INH DAILY PENDING SALE TO [facility] Last Admin: 04/14/16 09:21 Dose: 1 each Diltiazem HCl (Cardizem Cd Cap*) 120 mg PO DAILY PENDING SALE TO [facility] Last Admin: 04/14/16 09:05 Dose: 120 mg Lorazepam (Ativan Tab(*)) 0.5 mg PO Q6H PRN PRN Reason: ANXIETY Last Admin: 04/13/16 11:49 Dose: 0.5 mg Mometasone Furoate/Formoterol Fumar (Dulera 200/5 Mdi*) 2 puff INH BID PENDING SALE TO [facility] Last Admin: 04/14/16 09:20 Dose: 2 puff Morphine Sulfate (Morphine Oral.Soln 10 Mg*) 5 mg PO Q4H PRN PRN Reason: air hunger Nicotine (Nicotine Inhaler*) 10 mg INH Q2H PRN PRN Reason: CRAVING Last Admin: 04/14/16 09:03 Dose: 10 mg Omeprazole (Prilosec Cap*) 20 mg PO DAILY@0600 PEND[facility] TO [facility] Last Admin: 04/14/16 06:13 Dose: 20 mg Prednisone (Deltasone Tab*) 30 mg PO DAILY [facility]END[facility] TO [facility] Last Admin: 04/14/16 09:05 Dose: 30 mg Sertraline HCl (Zoloft*) 50 mg PO DAILY [facility]END[facility] TO [facility] Last Admin: 04/14/16 09:05 Dose: 50 mg Sodium Chloride (Sodium Chloride 0.65% Nasal [place]*) 1 spray BOTH NARES Q4H PRN PRN Reason: DISCOMFORT Last Admin: 04/14/16 09:02 Dose: 1 spray Tiotropium [place] (Spiriva Cap.Inh*) 1 cap INH DAILY PENDING SALE TO [facility] Last Admin: 04/14/16 09:20 Dose: 1 cap Vital Signs 04/14/16 04/14/16 04/14/16 08:00 09:26 11:33 Temperature 97.4 F Pulse Rate 106 85 Respiratory 20 24 16 Rate Blood Pressure 131/69 (mmHg) O2 Sat by Pulse 91 97 Oximetry Oxygen Devices in Use Now: Nasal Cannula - 4L-93% Appearance: Elderly lady sitting up in a chair in [facility]. Eyes: No Scleral Icterus Ears/Nose/Mouth/Throat: Mucous Membranes Moist Neck: Trachea Midline Respiratory: Symmetrical Chest Expansion and Respiratory Effort, - - BS+ bilaterally decreased with no added sounds Cardiovascular: RRR - Normal S1 and S2 Abdominal: NL Sounds; No Tenderness; No Distention Extremities: No Edema Neurological: Alert and Oriented x 3, NL Muscle Strength and Tone Lines/Tubes/Other Access: Clean, Dry and Intact Peripheral IV Nutrition: Taking PO's Result Diagrams: 04/11/16 04:59 04/13/16 05:32 Assess/Plan/Problems-Billing Assessment: Ms Costa is a 65 yo F who has a h/o COPD on home O2 4 liters and anxiety who presented to the ER for c/o back pain and was found to be in acute on chronic hypercarbic respiratory failure and rapid atrial flutter. - Patient Problems (1) Acute and chronic respiratory failure with hypercapnia Comment: - Likely secondary to COPD exacerbation present on admission on a patient with minimal reserve. - She continues to improve slowly. - Continue 4L of O2. (2) COPD exacerbation Comment: - Secondary to bronchitis, much improved. - Continue bronchodilators and steroid taper. (3) Anxiety Comment: - Continue Zoloft and prn Ativan. (4) Atrial flutter Comment: - Patient remains in NSR. - Continue diltiazem and Eliquis. - [id number] score is 2 (female, age 65-74). - Echo showed EF 45-50% with mild global hypokinesis. Moderate to severe pulmonary HTN with RV function mildly reduced. (5) Back pain Comment: - Xray spine showed L1 and L3 fractures of indeterminate age. - Suspect pain was likely musculoskeletal. - Well controlled with Tylenol. (6) DVT prophylaxis Comment: - Eliquis. (7) DNR (do not resuscitate) Status and Disposition: Inpatient.
[2016-04-14] MEDS ORDERED: Bisacodyl SUPP* 10 MG SUPP PR PRN (16:04)
[2016-04-14] MEDS: Bisacodyl EC TAB* 5 MG PO SCH (17:52)
[2016-04-15] MEDS: Omeprazole CAP* 20 MG PO SCH (05:24)
[2016-04-15] MEDS: Potassium Chlor TAB* 20 MEQ TAB.ER PO SCH (08:23)
[2016-04-15] MEDS: Bisacodyl EC TAB* 5 MG PO SCH (08:24)
[2016-04-15] MEDS: Diltiazem CD CAP* 120 MG PO SCH (08:24)
[2016-04-15] MEDS: Apixaban* 5 MG TAB PO SCH ×2 (08:24→20:25)
[2016-04-15] MEDS: Magnesium Oxide TAB* 400 MG PO SCH (08:24)
[2016-04-15] MEDS: predniSONE TAB* 10 MG PO SCH (08:25)
[2016-04-15] MEDS: Sertraline* 50 MG TAB PO SCH (08:25)
[2016-04-15] MEDS: Acetaminophen TAB* 325 MG PO PRN (08:38)
[2016-04-15] MEDS: Nicotine Inhaler* 10 MG AMP INH PRN ×2 (09:16→20:10)
[2016-04-15] MEDS: LORazepam TAB(*) 0.5 MG PO PRN (09:17)
[2016-04-15] MEDS: Tiotropium CAP.INH* CAP.INH/18 MCG (USE ORDER SET !) INH SCH (10:06)
[2016-04-15] MEDS: Mometasone/Formoter 200/5 MDI INH SCH ×2 (10:06→19:59)
[2016-04-15] MEDS: Spiriva Inhaler DEVICE* 1 EACH DEVICE INH SCH (12:41)
--- NOTE | 2016-04-15 13:56 | PN ---
Subjective Date of Service: 04/15/16 Interval History: HOSPITALIST PROGRESS NOTE Patient seen and examined at bedside. She feels well today. Had a good night of sleep and feels rested. Breathing is close to her baseline. Cough is still present, but less intense. Family History: Unchanged from Admission Social History: Unchanged from Admission Past Medical History: Unchanged from Admission Objective Active Medications: Acetaminophen (Tylenol Tab*) 650 mg PO Q6H PRN PRN Reason: FEVER Last Admin: 04/15/16 08:38 Dose: 650 mg Hydrocodone Bitart/Acetaminophen ([place] 5-325 Tab*) 1 tab PO Q4H PRN PRN Reason: PAIN Last Admin: 04/12/16 16:53 Dose: 1 tab Albuterol/Ipratropium (Duoneb Neb.Erica*) 1 neb INH Q6H PRN PRN Reason: SOB/WHEEZING Last Admin: 04/13/16 12:55 Dose: 1 neb Apixaban (Eliquis*) 5 mg PO BID [facility] Last Admin: 04/15/16 08:24 Dose: 5 mg Bisacodyl (Dulcolax Ec Tab*) 5 mg PO DAILY [facility] Last Admin: 04/15/16 08:24 Dose: 5 mg Bisacodyl (Dulcolax Supp*) 10 mg RI DAILY PRN PRN Reason: CONSTIPATION Device (Nicotine Mouth Piece*) 1 each INH DAILY PRN PRN Reason: CRAVING. MULTI-USE DEVICE Last Admin: 04/11/16 17:01 Dose: 1 each Diltiazem HCl (Cardizem Cd Cap*) 120 mg PO DAILY [facility] Last Admin: 04/15/16 08:24 Dose: 120 mg Lorazepam (Ativan Tab(*)) 0.5 mg PO Q6H PRN PRN Reason: ANXIETY Last Admin: 04/15/16 09:17 Dose: 0.5 mg Magnesium Oxide (Magox 400 Tab*) 800 mg PO DAILY [facility] Last Admin: 04/15/16 08:24 Dose: 800 mg Mometasone Furoate/Formoterol Fumar (Dulera 200/5 Mdi*) 2 puff INH BID [facility] Last Admin: 04/15/16 10:06 Dose: 2 puff Morphine Sulfate (Morphine Oral.Soln 10 Mg*) 5 mg PO Q4H PRN PRN Reason: air hunger Nicotine (Nicotine Inhaler*) 10 mg INH Q2H PRN PRN Reason: CRAVING Last Admin: 04/15/16 09:16 Dose: 10 mg Omeprazole (Prilosec Cap*) 20 mg PO DAILY@0600 [facility] Last Admin: 04/15/16 05:24 Dose: 20 mg Potassium Chloride ([place] Con Er Tab*) 20 meq PO DAILY WITH MEAL [facility] Last Admin: 04/15/16 08:23 Dose: 20 meq Prednisone (Deltasone Tab*) 30 mg PO DAILY [facility] Last Admin: 04/15/16 08:25 Dose: 30 mg Sertraline HCl (Zoloft*) 50 mg PO DAILY [facility] Last Admin: 04/15/16 08:25 Dose: 50 mg Sodium Chloride (Sodium Chloride 0.65% Nasal [place]*) 1 spray BOTH NARES Q4H PRN PRN Reason: DISCOMFORT Last Admin: 04/14/16 09:02 Dose: 1 spray Tiotropium [place] (Spiriva Cap.Inh*) 1 cap INH DAILY [facility] Last Admin: 04/15/16 10:06 Dose: 1 cap Vital Signs 04/15/16 12:03 Temperature 98.5 F Pulse Rate 86 Respiratory 16 Rate Blood Pressure 113/66 (mmHg) O2 Sat by Pulse 97 Oximetry Oxygen Devices in Use Now: Simple Face Mask - 4L-95% Appearance: Pleasant elderly lady sitting up in bed in [facility], eating lunch. Eyes: No Scleral Icterus Ears/Nose/Mouth/Throat: Mucous Membranes Moist Neck: Trachea Midline Respiratory: Symmetrical Chest Expansion and Respiratory Effort, - - BS+ bilaterally decreased with no added sounds Cardiovascular: RRR - Normal S1 and S2 Abdominal: NL Sounds; No Tenderness; No Distention Extremities: No Edema Neurological: Alert and Oriented x 3, NL Muscle Strength and Tone Lines/Tubes/Other Access: Clean, Dry and Intact Peripheral IV Nutrition: Taking PO's Result Diagrams: 04/11/16 04:59 04/13/16 05:32 Assess/Plan/Problems-Billing Assessment: Ms Costa is a 65 yo F who has a h/o COPD on home O2 4 liters and anxiety who presented to the ER for c/o back pain and was found to be in acute on chronic hypercarbic respiratory failure and rapid atrial flutter. - Patient Problems (1) Acute and chronic respiratory failure with hypercapnia Comment: - Likely secondary to COPD exacerbation present on admission on a patient with minimal reserve. - She continues to improve slowly. - Continue 4L of O2 at rest, but will need 6 liters with exertion as seen during her PT eval. (2) COPD exacerbation Comment: - Secondary to bronchitis, much improved. - Continue bronchodilators and steroid taper. (3) Anxiety Comment: - Continue Zoloft and prn Ativan. (4) Atrial flutter Comment: - Patient remains in NSR. - Continue diltiazem and Eliquis. - [id number] score is 2 (female, age 65-74). - Echo showed EF 45-50% with mild global hypokinesis. Moderate to severe pulmonary HTN with RV function mildly reduced. (5) Back pain Comment: - Xray spine showed L1 and L3 fractures of indeterminate age. - Suspect pain was likely musculoskeletal. - Well controlled with Tylenol. (6) DVT prophylaxis Comment: - Eliquis. (7) Tobacco abuse Comment: - Approximately 5 minutes spent on tobacco cessation counseling. - Continue nicotine inhaler. (8) DNR (do not resuscitate) Status and Disposition: Inpatient. Anticipate d/c in AM if she continues to improve. Daughter (Verenice) called at [phone] and updated about patient's condition.
[2016-04-16] MEDS: Omeprazole CAP* 20 MG PO SCH (05:22)
[2016-04-16] MEDS: Tiotropium CAP.INH* CAP.INH/18 MCG (USE ORDER SET !) INH SCH (08:13)
[2016-04-16] MEDS: Mometasone/Formoter 200/5 MDI INH SCH (08:15)
[2016-04-16] MEDS: Potassium Chlor TAB* 20 MEQ TAB.ER PO SCH (08:37)
[2016-04-16] MEDS: Sertraline* 50 MG TAB PO SCH (08:37)
[2016-04-16] MEDS: Magnesium Oxide TAB* 400 MG PO SCH (08:37)
[2016-04-16] MEDS: Diltiazem CD CAP* 120 MG PO SCH (08:37)
[2016-04-16] MEDS: Apixaban* 5 MG TAB PO SCH (08:37)
[2016-04-16] MEDS: Acetaminophen TAB* 325 MG PO PRN ×2 (08:37→14:30)
[2016-04-16] MEDS: predniSONE TAB* 10 MG PO SCH (08:37)
[2016-04-16] MEDS: Bisacodyl EC TAB* 5 MG PO SCH (08:37)
[2016-04-16] MEDS: Nicotine Inhaler* 10 MG AMP INH PRN ×2 (08:43→14:31)
[2016-04-16 11:18] VITALS: BP 118/61
--- NOTE | 2016-04-17 04:56 | DS ---
DISCHARGE SUMMARY: DATE OF ADMISSION: 04/10/16 DATE OF DISCHARGE: 04/16/16 PRIMARY CARE PROVIDER: Dr. Chávez. ENGINEERING OFFICER: Dr. Delgado. HOSPITAL COURSE: Mrs. Costa is a 65-year-old lady with a past medical history of COPD, chronic respiratory failure, and tobacco abuse who presented to the emergency room with complaints of back pain and had progressive shortness of breath. In the emergency room, she was found to be in atrial flutter with heart rate in the 170s. As her respiratory distress continued, the patient was admitted to the intensive care unit. For more details about her presentation, I refer you to her history and physical by Dr. Griffin. 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 She was treated with BiPAP, and the patient was very clear that she is a Do Not Resuscitate and Do Not Intubate. With amiodarone, the patient converted back to normal sinus rhythm and with BiPAP, she had progressive improvement. The patient was transferred to the telemetry floor on April 11. She had a transthoracic echocardiogram performed that showed mild global hypokinesis of the left ventricle with ejection fraction of 45% to 50%, right ventricular global systolic function was mildly reduced with mild to moderate tricuspid regurgitation and moderate to severe pulmonary hypertension. The patient continued to have progressive improvement of her respiratory status and she was brought back to her baseline of 4 liters of oxygen at rest, but during exertion she still required 6 liters of oxygen. She did not appear to have an infectious process and the impression was that likely the rapid atrial flutter precipitated her episode of respiratory failure. The patient has a [id number] VASC score of 2 and after reviewing risks and benefits of anticoagulation with warfarin or one of the new agents, the patient elected to be treated with Eliquis and she has tolerated it well. The patient was seen by casework manager and arrangements were made for her to receive assistance at home, also a personal alarm and visiting nurse services. The patient was felt to be stable for discharge on 04/16/16. For her back pain, the patient had x-rays performed and it showed L1 and L3 fractures of indeterminate age. The patient had significant improvement of her pain with Tylenol only. Any further workup was not pursued at this point, but if her pain persists, she may benefit with CT or MRI as outpatient. PHYSICAL EXAMINATION: Vital Signs: Temperature 97.9, heart rate is 86, respiratory rate is 22, oxygen saturation 98% on 4 liters nasal cannula, blood pressure is 118/61. General: The patient is a thin, frail, elderly lady sitting up in the chair in no acute distress. CVS: Normal S1 and S2. Regular rate and rhythm. Chest: Breath sounds are slightly decreased. There are no added sounds. Abdomen: Soft, bowel sounds are present. Extremities: No edema , only dry skin. Neuro: She is alert, awake, and oriented x3. Able to move all 4 extremities. DISCHARGE DIAGNOSES: 1. Acute on chronic hypoxemic/hypercapnic respiratory failure. 2. Chronic obstructive pulmonary disease exacerbation. 3. Atrial flutter with rapid ventricular rate. 4. Anxiety. 5. Back pain, most likely musculoskeletal. 6. L1 and L3 fractures of indeterminate age. 7. Tobacco abuse. 8. Anxiety. 9. Moderate protein calorie malnutrition. MEDICATION LIST: 1. Ibuprofen 200 mg p.o. q.6 hours p.r.n. pain. 2. Albuterol HFA 2 puffs inhaled q.4 hours p.r.n. shortness of breath. 3. Sertraline 50 mg p.o. daily. 4. Ranitidine 150 mg p.o. at bedtime. 5. Spiriva 1 capsule inhaled daily. 6. Advair 250/50 one puff inhaled b.i.d. New Medications: 1. Prednisone 30 mg p.o. daily for 2 days, 20 mg for 2 days, 10 mg for 2 days, 5 mg for 2 days, and stop. 2. Potassium chloride 20 mEq p.o. daily. 3. Omeprazole 20 mg p.o. daily. 4. Nicotine inhaler 10 mg inhaled q.12 hours p.r.n. craving. 5. Magnesium oxide 800 mg p.o. daily. 6. Lorazepam 0.5 mg p.o. q.8 hours p.r.n. anxiety, MDD 3, dispensed 30 tablets. 7. Diltiazem CD 120 mg p.o. daily. 8. Apixaban 5 mg p.o. b.i.d. 9. Tylenol 62 mg p.o. q.6 hours p.r.n. pain. DIET: Heart-healthy diet with mechanical ground texture. The patient was advised to avoid caffeine. STATUS WHILE IN THE HOSPITAL: Inpatient. DISPOSITION: To home. The patient received education regarding tobacco cessation and she said that she is very motivated to quit at this time. She also received education about her diagnosis and symptoms that should prompt her return to the emergency room. Please keep in mind this is a summarized version of this patient's hospital stay. If you need more information, please feel free to call me at [phone] or please obtain the full medical records. TIME SPENT: Approximately 45 minutes was spent to complete this discharge. CC: Dr. Chávez; Dr. Delgado * [id number]/[facility] #: [id number] LISA
== END 2016-04-16 15:25 | disposition home or self-care (01) | DRG 189 ==
LOC: ED 12:12 → ICU 15:58 → MEDTELE 04-11 12:11
PROVIDERS: ADMIT Internal Medicine Critical Care Medicine; ATTEND Internal Medicine
PROC: 5A09357 Assistance with Respiratory Ventilation, Less than 24 Consecutive Hours, Continuous Positive Airway Pressure (ICD-10-PCS; principal; 2016-04-10)
DX: J96.22 Acute and chronic respiratory failure with hypercapnia (principal); E44.0 Moderate protein-calorie malnutrition; I27.2 Other secondary pulmonary hypertension; I48.92 Unspecified atrial flutter; J44.1 Chronic obstructive pulmonary disease with (acute) exacerbation; M48.56XA Collapsed vertebra, not elsewhere classified, lumbar region, initial encounter for fracture; Z68.1 Body mass index [BMI] 19.9 or less, adult; F17.210 Nicotine dependence, cigarettes, uncomplicated; Z66 Do not resuscitate; I07.1 Rheumatic tricuspid insufficiency; J96.21 Acute and chronic respiratory failure with hypoxia; F41.9 Anxiety disorder, unspecified; M54.5 Low back pain; K21.9 Gastro-esophageal reflux disease without esophagitis; F32.9 Major depressive disorder, single episode, unspecified; Z80.3 Family history of malignant neoplasm of breast; Z80.1 Family history of malignant neoplasm of trachea, bronchus and lung; Z82.49 Family history of ischemic heart disease and other diseases of the circulatory system; Z99.81 Dependence on supplemental oxygen
CPT/HCPCS: 36415; 36600; 71020; 72100; 72220; 80048; 80053; 81003; 81015; 82803; 83605; 83735; 83880; 84100; 84484; 85025; 86140; 87040; 87086; 87502; 87641; 93005; 93306; 94640; 94660; 94760; 99406; A9270-GY; J0153; J0282; J1650; J2270; J2920; J3475; J7512

== ENCOUNTER 2016-08-07 18:49 | Inpatient (IN) | payer MEDICARE, MEDICAID ==
[2016-08-07] MEDS ORDERED: Albuterol/Ipratropium NEB.SOL* Albuterol 2.5 MG/Ipratropium 0.5 MG 3 ML INH ONE (19:05)
[2016-08-07] MEDS ORDERED: methylPREDNISolone 125 MG* 2 ML VIAL IV ONE (19:05)
[2016-08-07] MEDS ORDERED: Levofloxacin 750 MG IVPREMIX(* 750 MG/150 ML BAG IVPB ONE (19:05)
[2016-08-07 19:23] LABS: Hematocrit 42 % (35-47); Hemoglobin 13.7 g/dl (12.0-16.0); Mean Corpuscular HGB Conc 32 g/dl (31-36); Mean Corpuscular Hemoglobin 31 pg (27-31); Mean Corpuscular Volume 96 fL (80-97); Mean Platelet Volume 11 um3 (7.4-10.4); Red Blood Count 4.41 10^6/ul (4.0-5.4); Red Cell Distribution Width 14 % (10.5-15); White Blood Count 13.3 10^3/ul (3.5-10.8)
[2016-08-07 19:27] LABS: Add Diff/Slide Review? Slide Review Added; Comments Flag Yes
[2016-08-07 19:38] LABS: Albumin 3.9 g/dL (3.2-5.2); BUN/Creatinine Ratio 39.6 (8-20); C Reactive Protein 86.95 mg/L (< 5.00); Calcium 9.7 mg/dL (8.6-10.3); EGFR African American 63.2 (>60); EGFR Non-African American 49.2 (>60); Globulin 3.5 g/dL (2-4); Total Protein 7.4 g/dL (6.4-8.9)
[2016-08-07 19:42] LABS: FIO2 100
[2016-08-07 19:42] LABS: Troponin I 0.1 ng/mL (<0.04)
[2016-08-07 19:44] LABS: PCO2 Arterial 34 mmHg (35-45)
[2016-08-07] MEDS: NS 0.9% 1000 ML* 2,000 ML IV ONE ×2 (19:51→20:32)
--- NOTE | 2016-08-07 19:53 | RAD ---
Indication: Cough, shortness of breath Comparison: April 10, 2016 chest radiograph and December 02, [address] Technique: Upright AP 1925 hours Report: Elevated lung volumes and both diffuse mild prominence of the interstitial markings and patchy rarefaction of the mid to upper lung zone interstitial markings. Moderate bibasilar fibrosis. Bilateral nipple shadows noted. No superimposed alveolar consolidation, suspicious focal pulmonary lesion, pleural effusion, or pneumothorax. The heart, pulmonary vasculature, and mediastinal contours are unremarkable. IMPRESSION: Stigmata of advanced chronic obstructive pulmonary disease and emphysema with associated interstitial fibrosis without significant change. No secondary acute intrathoracic disease evident.
[2016-08-07] MEDS ORDERED: Aspirin Low Dose CHEW TAB* 81 MG PO ONE (20:02)
--- NOTE | 2016-08-07 20:10 | ED ---
Cha Kingston Alok, scribed for Mario Jacinto MD on 08/07/16 at 1936 . Shortness of Breath - HPI Summary HPI Summary: 66F presents to the ED BIBA for SOB over the last couple of days worsening today. Pt denies CP, fever, or vomiting . PMHx includes COPD and patient is on 4L home O2. Patient is a former tobacco smoker. Patient state she does not want intubation. - History of Current Complaint Chief Complaint: EDRespiratoryDistress Time Seen by Provider: 08/07/16 19:04 Hx Obtained From: Patient Onset/Duration: Lasting Days, Still Present, Worse Since - Today Timing: Constant Current Severity: Moderate Dyspnea At: Rest Aggrevating Factors: Nothing Alleviating Factors: Nothing Associated Signs & Symptoms: Negative - Allergy/Home Medications Allergies/Adverse Reactions: Allergies Allergy/AdvReac Type Severity Reaction Status Date / Time No Known Allergies Allergy Verified 06/08/16 14:19 PMH/Surg Hx/FS Hx/Imm Hx Endocrine/Hematology History: Denies: Hx Diabetes Cardiovascular History: Reports: Hx Hypertension Denies: Hx Pacemaker/ICD Respiratory History: Reports: Hx Chronic Obstructive Pulmonary Disease (COPD) GI History: Reports: Hx Gastroesophageal Reflux Disease History: Reports: Hx Kidney Infection Denies: Hx Renal Disease Sensory History: Denies: Hx Hearing Aid Psychiatric History: Reports: Hx Anxiety, Hx Depression, Hx Panic Disorder - PANIC ATTACKS - Surgical History Surgery Procedure, Year, and Place: TUBAL LIGATION - Immunization History Date of Tetanus Vaccine: unk Date of Influenza Vaccine: unk Infectious Disease History: No Infectious Disease History: Denies: Traveled Outside the [place] in Last 30 Days - Family History Known Family History: Positive: Cardiac Disease, Other - [place] - Social History Alcohol Use: None Substance Use Type: Reports: None Smoking Status (MU): Former Smoker Review of Systems Negative: Fever Negative: Chest Pain Positive: Shortness Of Breath Negative: Vomiting All Other Systems Reviewed And Are Negative: Yes Physical Exam - Summary Physical Exam Summary: The patient is well-nourished in no acute distress and in no acute pain. The skin is warm and dry and skin color reflects adequate perfusion. HEENT: The head is normocephalic and atraumatic. The pupils are equal and reactive. The conjunctivae are clear and without drainage. Nares are patent and without drainage. Mouth reveals dry mucous membranes and the throat is with brownish phlem. The external ears are intact. The ear canals are patent and without drainage. The tympanic membranes are intact. Neck is supple with full range of motion and non-tender. There are no carotid bruits. There is no neck vein distension. Respiratory: Chest is non-tender. Rhonchi and wheezing throughout lung orosc[place] with diminished breath sounds. Cardiovascular: Heart is tachycardic with diminished heart sounds. There is no murmur or rub auscultated. There is no peripheral edema and pulses are symmetrical and equal. Abdomen: The abdomen is soft and non-tender. There are normal bowel sounds heard in all four quadrants and there is no organomegaly palpated. Musculoskeletal: There is no back pain noted. Extremities are non-tender with full range of motion. Capillary refill 3-4 seconds. There is no peripheral edema or calf tenderness elicited. Neurological: Patient is alert and oriented to person, place and time. The patient has symmetrical motor strength in all four extremities. Cranial nerves are grossly intact. Deep tendon reflexes are symmetrical and equal in all four extremities. Psychiatric: The patient has an appropriate affect and does not exhibit any anxiety or depression. Triage Information Reviewed: Yes Vital Signs On Initial Exam: Initial Vitals Temp Pulse Resp BP Pulse Ox 97.9 F 93 28 143/72 76 08/07/16 18:52 08/07/16 18:52 08/07/16 18:52 08/07/16 18:52 08/07/16 18:52 Vital Signs Reviewed: Yes - Laurie Coma Scale Coma Scale Total: 15 Diagnostics - Vital Signs Vital Signs Temp Pulse Resp BP Pulse Ox 08/07/16 19:07 98.4 F 130 28 122/83 93 08/07/16 18:52 97.9 F 93 28 143/72 76 - Laboratory Lab Results: Lab Results 08/07/16 08/07/16 08/07/16 Range/Units 19:00 19:00 19:00 WBC 13.3 H (3.5-10.8) 10^3/ul RBC 4.41 (4.0-5.4) 10^6/ul Hgb 13.7 (12.0-16.0) g/dl Hct 42 (35-47) % MCV 96 (80-97) fL MCH 31 (27-31) pg MCHC 32 (31-36) g/dl RDW 14 (10.5-15) % Plt Count 242 (150-450) 10^3/ul MPV 11 H (7.4-10.4) um3 Neut % (Auto) 76.9 (38-83) % Lymph % (Auto) 9.9 L (25-47) % Newton % (Auto) 13.0 H (1-9) % Eos % (Auto) 0 (0-6) % Baso % (Auto) 0.2 (0-2) % Absolute Neuts (auto) 10.2 H (1.5-7.7) 10^3/ul Absolute Lymphs (auto) 1.3 (1.0-4.8) 10^3/ul Absolute Monos (auto) 1.7 H (0-0.8) 10^3/ul Absolute Eos (auto) 0 (0-0.6) 10^3/ul Absolute Basos (auto) 0 (0-0.2) 10^3/ul Absolute Nucleated RBC 0.01 10^3/ul Nucleated RBC % 0.1 INR (Anticoag Therapy) (0.89-1.11) Patient Temperature ABG pH (7.35-7.45) ABG pCO2 (35-45) mmHg ABG pO2 (80-100) mmHg ABG HCO3 (19-31) mmol/L ABG O2 Saturation (95-98) % ABG Base Excess (-2.0-2.0) Respiration Rate O2 Delivery Device Ventilator Type Vent Mode FiO2 Inspiratory Time PEEP Pressure Support Pressure Control EPAP IPAP BiPAP Sodium 127 L (133-145) mmol/L Potassium 5.0 (3.5-5.0) mmol/L Chloride 96 L (101-111) mmol/L Carbon Dioxide 19 L (22-32) mmol/L Anion Gap 12 H (2-11) mmol/L BUN 44 H (6-24) mg/dL Creatinine 1.11 H (0.51-0.95) mg/dL Est GFR ( Amer) 63.2 (>60) Est GFR (Non-Af Amer) 49.2 (>60) BUN/Creatinine Ratio 39.6 H (8-20) Glucose 133 H (70-100) mg/dL Lactic Acid 2.2 H* (0.5-2.0) mmol/L Calcium 9.7 (8.6-10.3) mg/dL Total Bilirubin 1.00 (0.2-1.0) mg/dL AST 93 H (13-39) U/L ALT 91 H (7-52) U/L Alkaline Phosphatase 97 (34-104) U/L Troponin I 0.10 H* (<0.04) ng/mL C-Reactive Protein 86.95 H (< 5.00) mg/L B-Natriuretic Peptide ( - 100) pg/mL Total Protein 7.4 (6.4-8.9) g/dL Albumin 3.9 (3.2-5.2) g/dL Globulin 3.5 (2-4) g/dL Albumin/Globulin Ratio 1.1 (1-3) 08/07/16 08/07/16 08/07/16 Range/Units 19:00 19:00 19:27 WBC (3.5-10.8) 10^3/ul RBC (4.0-5.4) 10^6/ul Hgb (12.0-16.0) g/dl Hct (35-47) % MCV (80-97) fL MCH (27-31) pg MCHC (31-36) g/dl RDW (10.5-15) % Plt Count (150-450) 10^3/ul MPV (7.4-10.4) um3 Neut % (Auto) (38-83) % Lymph % (Auto) (25-47) % Newton % (Auto) (1-9) % Eos % (Auto) (0-6) % Baso % (Auto) (0-2) % Absolute Neuts (auto) (1.5-7.7) 10^3/ul Absolute Lymphs (auto) (1.0-4.8) 10^3/ul Absolute Monos (auto) (0-0.8) 10^3/ul Absolute Eos (auto) (0-0.6) 10^3/ul Absolute Basos (auto) (0-0.2) 10^3/ul Absolute Nucleated RBC 10^3/ul Nucleated RBC % INR (Anticoag Therapy) 3.26 H (0.89-1.11) Patient Temperature Not Reportable ABG pH 7.37 (7.35-7.45) ABG pCO2 34 L (35-45) mmHg ABG pO2 70 L (80-100) mmHg ABG HCO3 21.0 (19-31) mmol/L ABG O2 Saturation 94.7 L (95-98) % ABG Base Excess -4.8 L (-2.0-2.0) Respiration Rate Not Reportable O2 Delivery Device Nrb Ventilator Type Not Reportable Vent Mode Not Reportable FiO2 100 Inspiratory Time Not Reportable PEEP Not Reportable Pressure Support Not Reportable Pressure Control Not Reportable EPAP Not Reportable IPAP Not Reportable BiPAP Not Reportable Sodium (133-145) mmol/L Potassium (3.5-5.0) mmol/L Chloride (101-111) mmol/L Carbon Dioxide (22-32) mmol/L Anion Gap (2-11) mmol/L BUN (6-24) mg/dL Creatinine (0.51-0.95) mg/dL Est GFR ( Amer) (>60) Est GFR (Non-Af Amer) (>60) BUN/Creatinine Ratio (8-20) Glucose (70-100) mg/dL Lactic Acid (0.5-2.0) mmol/L Calcium (8.6-10.3) mg/dL Total Bilirubin (0.2-1.0) mg/dL AST (13-39) U/L ALT (7-52) U/L Alkaline Phosphatase (34-104) U/L Troponin I (<0.04) ng/mL C-Reactive Protein (< 5.00) mg/L B-Natriuretic Peptide 2644 H ( - 100) pg/mL Total Protein (6.4-8.9) g/dL Albumin (3.2-5.2) g/dL Globulin (2-4) g/dL Albumin/Globulin Ratio (1-3) Result Diagrams: 08/07/16 19:00 08/07/16 19:00 Lab Statement: Any lab studies that have been ordered have been reviewed, and results considered in the medical decision making process. - Radiology CXR Xray Interpretation: Positive (See Comments) - IMPRESSION: Stigmata of advanced chronic obstructive pulmonary disease and emphysema with associated interstitial fibrosis without significant change. No secondary acute intrathoracic disease evident. Radiology Interpretation Completed By: Radiologist - EKG 1955 Cardiac Rate: Tachycardia - 137 bpm EKG Rhythm: Sinus Tachycardia EKG Interpretation: T-wave inversion in V3-V4 Course/Dx - Course Course Of Treatment: pt presents with acute dyspnea. pt has history of COPD. pt was administered duoneb x 3, solumedrol 125mg, and levaquuin. pt had elevated troponin and bnp. the pt will be admitted to the ICU. - Diagnoses Differential Diagnosis/HQI/PQRI: Positive: Bronchitis, CHF, COPD Exacerbation, [place], Pneumonia, Pulmonary Edema Provider Diagnoses: Acute dyspnea, COPD exacerbation, Elevated troponin Provider Diagnoses: (Ruled Out): - Physician Notifications Discussed Care of Patient With: Ad Donnelly - Will admit pt to [facility] Time Discussed With Above Provider: 19:46 - Critical Care Time Critical Care Time: 30-74 min - 30 min Discharge - Discharge Plan Condition: Stable Disposition: ADMITTED TO [facility] Referrals: Shannon Chávez MD [Primary Care Provider] - The documentation as recorded by the Cha elliott Alok accurately reflects the service I personally performed and the decisions made by Ophelia vela Drew, MD.
[2016-08-07] MEDS: ALPRAZolam TAB* 0.5 MG PO PRN (22:35)
[2016-08-08] MEDS: Diltiazem TAB* 30 MG PO SCH ×3 (00:44→12:03)
[2016-08-08] MEDS ORDERED: Albuterol HFA INHALER* 8 gm MDI INH PRN (01:01)
[2016-08-08] MEDS ORDERED: ALBUTEROL INH PRN (02:07)
[2016-08-08] MEDS: methylPREDNISolone SOD 40 MG* 1 ML VIAL IV SCH ×2 (04:36→12:03)
[2016-08-08] MEDS ORDERED: Omeprazole CAP* 20 MG PO SCH (06:00)
[2016-08-08] MEDS: ALPRAZolam TAB* 0.5 MG PO PRN ×3 (06:37→21:31)
[2016-08-08] MEDS: Mometasone/Formoter 200/5 MDI INH SCH ×2 (08:37→21:42)
[2016-08-08] MEDS: Rivaroxaban TAB(*) 20 MG TAB PO SCH ×2 (08:38→12:03)
[2016-08-08] MEDS ORDERED: Spiriva Inhaler DEVICE* 1 EACH DEVICE INH ONE (09:00)
[2016-08-08] MEDS ORDERED: Tiotropium CAP.INH* CAP.INH/18 MCG INH SCH ×2 (09:00)
[2016-08-08] MEDS ORDERED: Fluticasone-Salmeterol 250-50* DISKUS INH SCH (09:00)
--- NOTE | 2016-08-08 12:18 | HP ---
CC: Dr. Chávez* HISTORY AND PHYSICAL: DATE OF ADMISSION: 08/07/16 PRIMARY CARE PHYSICIAN: Dr. Chávez CHIEF COMPLAINT: Shortness of breath and wheezing. HISTORY OF PRESENT ILLNESS: The patient is a 66-year-old woman with a past medical history significant for COPD, who presented to [facility] with a chief complaint of two to three days of increased shortness of breath of wheezing. She has been using nebulizers more with little success. She has had an increasingly frequent cough that is productive of some coffee color, brown color and green color sputum. Occasionally this is clear. She says this shortness of breath only happens when she exerts herself or sometimes when she lays flat. She denies any chest pain or fevers or chills. She has been around her sister who has also been recently diagnosed with bronchitis and has been ill as well. In ED, the patient was evaluated. The x-ray showed as read by radiologist as no acute findings. The ER doctor and I felt it might be a small right lower lobe pneumonia. PAST MEDICAL HISTORY: The patient has a past medical history as noted for the COPD, atrial flutter currently on Xarelto, anxiety, GERD, history of tobacco abuse quit 4 months ago, moderate protein calorie malnutrition, L1 and L3 fractures, chronic back pain. ALLERGIES: She has no known drug allergies. CURRENT MEDICATIONS: Her current medication list is unclear and we are awaiting a list from her PCP. On her last discharge in April, . She was on a prednisone taper. 2. Potassium chloride 20 mEq daily. 3. Omeprazole 20 mg a day. 4. Nicotine inhaler 10 mg q.2 hours as needed for craving. 5. Magnesium oxide 800 mg daily. 6. Lorazepam 0.5 mg every 8 hours as needed. 7. Diltiazem CD 120 mg daily. 8. Eliquis 5 mg twice a day. 9. Tylenol 625 mg every 6 hours as needed for pain. FAMILY HISTORY: Mother at 61 of breast cancer. Father at 36 of a motor vehicle accident. SOCIAL HISTORY: She quit tobacco 4 months ago. Smoked 1 to 1-1/2 packs a day for over 40 years. No alcohol or recreational drug use. 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 She is a . She has 7 children. Her son, Kalpesh Camacho" ____ _ is her healthcare proxy. She does not want to be resuscitated, but does want to be intubated. REVIEW OF SYSTEMS: A 14-point review of systems was completed with the patient. All pertinent positives and negatives are in the history of present illness, otherwise it is negative. PHYSICAL EXAMINATION GENERAL: A thin, frail woman, lying in bed, in no acute distress. VITAL SIGNS: Temperature 98.4 degrees, heart rate beats per minute, respiratory rate 20 breaths per minutes, pulse ox 93%, blood pressure 122/83. HEENT: Normocephalic and atraumatic. Pupils are equal, round and reactive to light. Moist mucous membranes. NECK: Supple. No JVD, bruits, palpable thyroid or lymphadenopathy. CHEST: She has got diminished breath sounds bilaterally. CARDIOVASCULAR: S1, S2 appreciated. Increased rate. ABDOMEN: Positive bowel sounds in all 4 quadrants. Soft, nontender, and nondistended. EXTREMITIES: No cyanosis, clubbing, or edema. +2 pulses bilaterally. NEUROLOGIC: Alert and oriented x3. Moves all extremities. SKIN: No rashes or abnormalities. DIAGNOSTIC STUDIES/LAB DATA: White count is 13.3, hemoglobin 13.7, hematocrit 42, platelets 242,000. Sodium is 127, potassium 5.0, chloride 96, CO2 19, BUN 44, creatinine 1.11, glucose is 133, lactic acid 2.2, troponin 0.1. BNP is 2644. ABG: PA 7.37, pCO2 34, pO2 is 70. Pulse ox is 94.7%. Chest x-ray was interpreted by Radiology as stigmata of COPD, associated with some fibrosis without significant change. No acute respiratory and thoracic process is evident. EKG shows sinus tachycardia 127 beats per minute. Normal axis. No acute ST or T- wave changes. ASSESSMENT AND PLAN: 1. Chronic obstructive pulmonary disease exacerbation. The patient does have diminished breath sounds and is quite hypoxic. Interestingly her CO2 is not very high. She is requiring Vapotherm, so I put her in the ICU. I will put on the Solu- Medrol nebulizers and I will also put her on Levaquin. Hopefully, she will improve and be able to transfer from floor to home fairly shortly. The patient actually appears to be in acute respiratory failure. In fact, with her BNP elevated and her troponin high, I suspect she is in cor pulmonale. I will also order transthoracic echocardiogram and cycle of troponins. 2. Atrial flutter. Continue Xarelto while I will put the patient on Cardizem waiting for her medications. 3. Depression. She was taking Zoloft. I will hold off on that, until I find out exactly what she is taking. 4. Gastroesophageal reflux disease. I will put her on Prilosec for now and await her list of medications. 5. FEN. Regular diet. 6. DVT prophylaxis. She will be on Xarelto. 7. The patient is a full code. TIME SPENT: Over 75 minutes were spent on this H and P, more than 40 minutes of which were spent in direct [id number] contact with the patient in evaluation, physical exam, counseling, and coordination of care. [id number]/[facility] #: [id number] MTDD
[2016-08-08] MEDS: Albuterol/Ipratropium NEB.SOL* Albuterol 2.5 MG/Ipratropium 0.5 MG 3 ML INH SCH ×3 (13:01→21:43)
--- NOTE | 2016-08-08 15:04 | PN ---
Critical Care Services: 66 yo female with advanced COPD admitted last night with exacerbation, manifest as hypoxemic respiratory failure. No evidence of pneumonia or CHF, but BNP was 2 ,644 on admission?? Vital Signs: Temp Pulse Resp BP SpO2 FiO2 97.6 F 116 24 96/62 91 70 Physical Exam: Gen:Alert, oriented, breathing comfortably Lungs:Diffuse wheezes and rhonchi, but moving air well. Cardiac: Reg rhythm Extremities:No cyanosis or edema Fluid Balance (Past 24 Hours): 08/08/16 06:59 Intake Total 1302 Output Total 0 Balance 1302 Weight 83 lb Intake: IV Fluids 1002 Oral 300 Output: Urine 0 Other: # Bowel Movements 1 Estimated Stool Amount Medium NOTE: Urine output not recorded. Labs: 08/08/16 08/08/16 00:24 08:35 INR (Anticoag Therapy) 1.78 Troponin I 0.08 ABGs: PO2 = 70 PCO2 = 34 pH = 7.37 NOTE: Is on Xarelto Studies: CXR: Hyperinflated lungs. No infiltrates. Nutrition: Reg diet. Impression: COPD exacerbation, but without hypercapnia. No evidence of pneumonia or CHF, but markedly elevated BNP is perplexing. Plan: 1. Usual Rx with bronchodilators, antibiotics, and low-dose steroids. 2. High-flow nasal O2 to keep SpO2 > 90% 3. Will repeat the BNP
[2016-08-08] MEDS ORDERED: Diltiazem TAB* 30 MG PO ONE (20:00)
[2016-08-08] MEDS ORDERED: Levofloxacin 250 MG IVPREMX(*) 250 MG/50 ML BAG IVPB SCH (20:00)
[2016-08-08] MEDS ORDERED: Levofloxacin 500 MG IVPREMIX(* 500 MG/100 ML BAG IVPB SCH (20:00)
[2016-08-08] MEDS ORDERED: DILTIAZEM IVPB ONE (20:55)
[2016-08-08] MEDS: Diltiazem DRIP* 100 MG/100 ML ADDV.BAG IVPB SCH ×2 (20:55→23:46)
[2016-08-08] MEDS ORDERED: Adenosine* 3 MG/ML VIAL ONE (21:07)
[2016-08-08 21:37] LABS: Hematocrit 36 % (35-47); Hemoglobin 12.1 g/dl (12.0-16.0); Mean Corpuscular HGB Conc 34 g/dl (31-36); Mean Corpuscular Hemoglobin 32 pg (27-31); Mean Corpuscular Volume 95 fL (80-97); Mean Platelet Volume 10 um3 (7.4-10.4); Red Blood Count 3.81 10^6/ul (4.0-5.4); Red Cell Distribution Width 14 % (10.5-15); White Blood Count 10.4 10^3/ul (3.5-10.8)
[2016-08-08 21:48] LABS: Albumin 3.5 g/dL (3.2-5.2); BUN/Creatinine Ratio 36.8 (8-20); Calcium 9.5 mg/dL (8.6-10.3); EGFR African American 111.3 (>60); EGFR Non-African American 86.6 (>60); Globulin 3.2 g/dL (2-4); Potassium 4.4 mmol/L (3.5-5.0); Total Bilirubin 0.6 mg/dL (0.2-1.0); Total Protein 6.7 g/dL (6.4-8.9)
[2016-08-08] MEDS ORDERED: Digoxin IV* 0.5 MG/2 ML AMP (0.25 MG/ML) IV SLOW PU ONE (21:56)
[2016-08-08] MEDS ORDERED: Digoxin IV* 0.5 MG/2 ML AMP (0.25 MG/ML) ONE (22:01)
[2016-08-08 23:08] LABS: Magnesium 2.1 mg/dL (1.9-2.7); Phosphorus 2.6 mg/dL (2.5-5.0)
[2016-08-08 23:15] LABS: Troponin I 0.05 ng/mL (<0.04)
[2016-08-09] MEDS: Albuterol/Ipratropium NEB.SOL* Albuterol 2.5 MG/Ipratropium 0.5 MG 3 ML INH SCH ×6 (00:04→20:36)
[2016-08-09] MEDS ORDERED: Digoxin IV* 0.5 MG/2 ML AMP (0.25 MG/ML) IV SLOW PU ONE (04:00)
[2016-08-09 05:54] LABS: Hematocrit 35 % (35-47); Hemoglobin 11.4 g/dl (12.0-16.0); Mean Corpuscular HGB Conc 33 g/dl (31-36); Mean Corpuscular Hemoglobin 32 pg (27-31); Mean Corpuscular Volume 96 fL (80-97); Mean Platelet Volume 10 um3 (7.4-10.4); Red Cell Distribution Width 14 % (10.5-15); White Blood Count 8.2 10^3/ul (3.5-10.8)
[2016-08-09] MEDS: Diltiazem DRIP* 100 MG/100 ML ADDV.BAG IVPB SCH (06:41)
[2016-08-09] MEDS: Mometasone/Formoter 200/5 MDI INH SCH ×2 (08:30→20:36)
[2016-08-09] MEDS: Famotidine TAB* 20 MG PO SCH (09:15)
[2016-08-09] MEDS: Rivaroxaban TAB(*) 20 MG TAB PO SCH (09:15)
[2016-08-09] MEDS: methylPREDNISolone 125 MG* 2 ML VIAL IV SCH (09:15)
--- NOTE | 2016-08-09 10:29 | ECHO ---
Patient: JACKELINE KATHLEEN [facility] Rec#: [id number] : 1950 Date: 08/09/2016 Age: 66y Height: 162.6 cm / 64.0 in Weight: 38.1 kg / 84.0 lbs Sex: F BSA: 1.4 Room#: ICU 10 Admit Date#: 08/07/2016 Type: Inpatient Referring: Ad Donnelly MD Reading: David Martinez MD Supervisor Taping: Veronica Dukes RN RDCS CC: CHAD JULIO Transthoracic Echocardiogram Indication: Respiratory abnormality, Cor pulmonale BP: 99/62 HR: 79 Rhythm: NSR with PACs Findings History: COPD, A. flutter, former smoker Technical Comments: The study quality is fair. The study is technically limited due to patient body habitus. The study is technically limited due to the patient's history of COPD. Completed at 0855. Left Ventricle: The left ventricular chamber size is decreased. Global left ventricular wall motion and contractility are within normal limits. There is normal left ventricular systolic function. The estimated ejection fraction is 55-60%. There is septal flattening of the interventricular septum consistent with right ventricular volume or pressure overload. Abnormal left ventricular diastolic filling is observed, consistent with impaired relaxation. Left Atrium: The left atrial cavity size is abnormally small. Right Ventricle: The right ventricle is moderately dilated. The right ventricular global systolic function is severely reduced. Right Atrium: The right atrial cavity size is normal. Aortic Valve: The aortic valve is trileaflet. The aortic valve leaflets are mildly thickened. There is no evidence of aortic regurgitation. There is no evidence of aortic stenosis. Mitral Valve: The mitral valve leaflets are mildly thickened. There is a trace of mitral regurgitation. There is no evidence of mitral stenosis. Tricuspid Valve: The tricuspid valve leaflets are normal. There is severe tricuspid regurgitation. The right ventricular systolic pressure is estimated to be 120-125 mmHg. There is evidence of severe pulmonary hypertension. There is no tricuspid stenosis. Pulmonic Valve: The pulmonic valve appears normal. There is moderate to severe pulmonic regurgitation. There is no pulmonic stenosis. Pericardium: There is no significant pericardial effusion. Aorta: There is no dilatation of the ascending aorta. There is no dilatation of the aortic arch. There is no dilation of the aortic root. Pulmonary Artery: The main pulmonary artery is not well visualized. Venous: The inferior vena cava is dilated. There is less than 50% respiratory change in the inferior vena cava dimension. Conclusions Global left ventricular wall motion and contractility are within normal limits. There is normal left ventricular systolic function. The estimated ejection fraction is 55-60%. There is septal flattening of the interventricular septum consistent with right ventricular volume or pressure overload. The right ventricular global systolic function is severely reduced. The aortic valve leaflets are mildly thickened. There is no evidence of aortic stenosis. There is a trace of mitral regurgitation. There is severe tricuspid regurgitation. There is evidence of severe pulmonary hypertension. The right ventricular systolic pressure is estimated to be 120-125 mmHg. There is moderate to severe pulmonic regurgitation. There is no significant pericardial effusion. There is no significant pericardial effusion. Compared to study of 04/14/16, the LV function is about the same, The degree of TR and puln HTN are much worse. Measurements Name Value Normal Range RVDdMajor (2D) 3.4 cm (2.2 - 4.4) RAd ISD 4CH 3.2 cm (3.4 - 4.9) RA (A4C)W 4.1 cm (2.9 - 4.6) IVSd (2D) 1 cm (0.6 - 1) LVPWd (2D) 0.9 cm (0.6 - 1) LVIDd (2D) 2.9 cm (3.6 - 5.4) LVIDs (2D) 2 cm - LV FS (2D) 3 % (25 - 45) Aortic Annulus 2 cm (1.4 - 2.6) Ao root diameter (2D) 2.5 cm (2.1 - 3.5) Ascending Ao 2.7 cm (2.1 - 3.4) Aortic arch 1.7 cm (1.8 - 3.4) LA dimension (AP) 2D 2.3 cm (2.3 - 3.8) LAd ISD 4CH 2.2 cm (2.9 - 5.3) LA ISD 4CH W 2.1 cm (2.5 - 4.5) Name Value Normal Range MV E-wave Vmax 0.47 m/sec - MV deceleration time 252 msec - MV A-wave Vmax 0.9 m/sec - MV E:A ratio 0.5 ratio - LV septal e' Vmax 0.05 m/sec - LV lateral e' Vmax 0.09 m/sec - LV E:e' septal ratio 9.4 ratio - LV E:e' lateral ratio 5.2 ratio - Name Value Normal Range AV Vmax 1.3 m/sec - AV VTI 20.5 cm - AV peak gradient 7 mmHg - AV mean gradient 4 mmHg - LVOT Vmax 0.87 m/sec - LVOT VTI 13.7 cm - LVOT peak gradient 3 mmHg - LVOT mean gradient 2 mmHg - ANCA Vmax 0.92 m/sec - Name Value Normal Range TR Vmax 5.2 m/sec - TR peak gradient 108 mmHg - RAP 15 mmHg - RVSP 123 mmHg - IVC diameter 2.2 cm - Name Value Normal Range PV Vmax 0.74 m/sec -
--- NOTE | 2016-08-09 12:09 | PN ---
Critical Care Services: Had episode of AFIB with rapid ventricular response last night - did not respond to diltiazem drip and give digoxin load (0.75 mg total) - in NSR this AM , and serum dig level is 10.6 ! (which is unlikely after just a loading dose). Yaw remains on Vapotherm and appears comfortable. Vital Signs: Temp Pulse Resp BP SpO2 FiO2 98.1 F 79 18 98/52 91 65 Physical Exam: Gen:Resting comfortably. Alert and oriented. Lungs: Coarse rhonchi. Occasional wheeze Extremities:No cyanosis or edema Fluid Balance (Past 24 Hours): 08/09/16 06:59 Intake Total 1456 Output Total 0 Balance 1456 Weight 86 lb 13oz Intake: IV Fluids 47 Levaquin 47 Medicated IV 169 GEN - Diltiazem/Cardizem 169 Oral 1240 Output: Urine 0 Other: Estimated Void Large # Bowel Movements Estimated Stool Amount # Voids 2 NOTE: Urine output not recorded. Labs: 08/09/16 05:35 WBC 8.2 Hgb 11.4 L Hct 35 Plt Count 200 INR (Anticoag Therapy) 2.40 B-Natriuretic Peptide 1211 Digoxin 10.6 Studies: ECHO: Cor pulmonale Nutrition: Oral diet Impression: 1. Doing well today on standard Rx for exacerbation of COPD. No evidence pneumonia. 2. Has recurrent A flutter/fib, which is not a problem today. Doubt the reported dig level considering the dose of digoxin administered. 3. Elevated INR probably due to xarelto. 4. Elevated BNP due to right-sided heart failure (by ECHO) Plan: 1. Oral diltiazem (as in her outpatient regimen) 2. Repeat dig level. 3. I will hold on diuresis (for elevated BNP) because of borderline low BP 4. Taper inhaled O2 to maintain SpO2 of 85-90%. D/C vapotherm system when possible. Critical Care Time: 35 minutes
[2016-08-09] MEDS: Diltiazem CD CAP* 120 MG PO SCH (13:29)
[2016-08-09] MEDS: ALPRAZolam TAB* 0.5 MG PO PRN (13:32)
[2016-08-10] MEDS: Albuterol/Ipratropium NEB.SOL* Albuterol 2.5 MG/Ipratropium 0.5 MG 3 ML INH SCH ×6 (01:48→19:46)
[2016-08-10] MEDS: Mometasone/Formoter 200/5 MDI INH SCH ×2 (08:36→19:48)
[2016-08-10] MEDS: Azithromycin TAB* 250 MG PO SCH (08:40)
[2016-08-10] MEDS: Famotidine TAB* 20 MG PO SCH (08:40)
[2016-08-10] MEDS: methylPREDNISolone 125 MG* 2 ML VIAL IV SCH (08:40)
[2016-08-10] MEDS: Diltiazem CD CAP* 120 MG PO SCH (08:40)
[2016-08-10] MEDS: Rivaroxaban TAB(*) 20 MG TAB PO SCH (08:41)
--- NOTE | 2016-08-10 11:35 | PN ---
Progress Note - Progress Note Date of Service: 08/10/16 Note: CRITICAL CARE MEDICINE DATE: 08/10/16 TIME: 1045 PHYSICAL EXAM: thin and frail. Vital Signs: Reviewed. Hr 90s, Sinus. 20L Neurologic: baseline. communicating and holds capacity HEENT: anicteric, mmm Cardiovascular: reg, no m appreciated. Respiratory: coarse without wheeze, about 20 to less rr Abdomen: soft, nt Extremities: warm, dry skin. Access: per LABS: Reviewed. IMAGING: Reviewed. MEDICATIONS: Reviewed. ASSESSMENT: 65 F - much better Acute on chronic hypoxic and hypercarbic respiratory failure COPD exac Afib with RVR - converted to NSR currently Depression/anxiety GERD PLAN: Neurologic: stable. xanax prn. Cardiovascular: converted with amio. NSR. On cardizem dc. severe pulm htn and end stage lung dz the main drivers here. no ecg changes with dig level variations. Respiratory: COPD exac better and improved with high flow rescue. no need for bipap and can come off hFO2 today and see if she can avoid rescuse. Should remain on O2 continuous;. copd adjunctives. can f/u with pulm and should have palliative care f/u Gastrointestinal: po diet. on H2 Renal/Metabolic: lytes ok. Infectious Disease: no abx needs but given acuity was placed on azithro to support copd adjuctives and can have for 5 days Hematology: stable. outpt anticoag needs Endocrine: steroids to po short course. Musculoskeletal: pt eval prn Psych/Social: zoloft. pt expresses understanding. Supportive and preventative care as ordered. SUP: po VTE prophylaxis: on full anticoag Disposition: ICU today and floor tomorrow Code Status: DNR/DNI (Molst completed) Critical Care Time: 25min Sincere Griffin DO
[2016-08-10] MEDS ORDERED: Albuterol 2.5 MG/3 ML NEB.SOL* (0.083%) INH PRN (12:13)
[2016-08-10] MEDS: Morphine INJ* 2 MG/ML 1 ML SYRINGE IV PRN ×3 (13:13→22:16)
[2016-08-10] MEDS: Sertraline* 50 MG TAB PO SCH (15:37)
[2016-08-10] MEDS: ALPRAZolam TAB* 0.5 MG PO PRN (17:27)
[2016-08-11] MEDS: Albuterol/Ipratropium NEB.SOL* Albuterol 2.5 MG/Ipratropium 0.5 MG 3 ML INH SCH ×2 (01:17→05:34)
[2016-08-11 05:58] LABS: Hematocrit 34 % (35-47); Mean Corpuscular HGB Conc 33 g/dl (31-36); Mean Corpuscular Hemoglobin 32 pg (27-31); Mean Corpuscular Volume 97 fL (80-97); Mean Platelet Volume 10 um3 (7.4-10.4); Red Blood Count 3.47 10^6/ul (4.0-5.4); Red Cell Distribution Width 14 % (10.5-15); White Blood Count 6.9 10^3/ul (3.5-10.8)
[2016-08-11 06:10] LABS: BUN/Creatinine Ratio 86.7 (8-20); Blood Urea Nitrogen 39 mg/dL (6-24); CO2 Carbon Dioxide 37 mmol/L (22-32); Calcium 9.7 mg/dL (8.6-10.3); Chloride 100 mmol/L (101-111); EGFR African American 179.3 (>60); EGFR Non-African American 139.4 (>60); Glucose 129 mg/dL (70-100); Magnesium 2.2 mg/dL (1.9-2.7); Phosphorus 3.1 mg/dL (2.5-5.0); Potassium 5.2 mmol/L (3.5-5.0); Sodium 135 mmol/L (133-145)
[2016-08-11] MEDS ORDERED: Albuterol 2.5 MG/3 ML NEB.SOL* (0.083%) INH PRN (08:53)
[2016-08-11] MEDS: Mometasone/Formoter 200/5 MDI INH SCH ×2 (08:57→20:09)
[2016-08-11] MEDS: Azithromycin TAB* 250 MG PO SCH (09:27)
[2016-08-11] MEDS: Rivaroxaban TAB(*) 20 MG TAB PO SCH (09:27)
[2016-08-11] MEDS: Tiotropium CAP.INH* CAP.INH/18 MCG INH SCH (09:28)
[2016-08-11] MEDS: predniSONE TAB* 20 MG PO SCH (09:29)
[2016-08-11] MEDS: Famotidine TAB* 20 MG PO SCH (09:29)
[2016-08-11] MEDS: Sertraline* 50 MG TAB PO SCH (09:29)
[2016-08-11] MEDS: Diltiazem CD CAP* 120 MG PO SCH (09:30)
[2016-08-11] MEDS ORDERED: Spiriva Inhaler DEVICE* 1 EACH DEVICE INH ONE (10:00)
--- NOTE | 2016-08-11 11:22 | PN ---
Progress Note - Progress Note Date of Service: 08/11/16 Note: CRITICAL CARE MEDICINE DATE: 08/11/16 TIME: 800 PHYSICAL EXAM: thin and frail. Vital Signs: Reviewed. Hr 90s, Sinus. 15L Neurologic: baseline. communicating and holds capacity; weak HEENT: anicteric, mmm Cardiovascular: reg, no m appreciated. Respiratory: coarse without wheeze, weak excursion Abdomen: soft, nt Extremities: warm, dry skin. Access: per LABS: Reviewed. IMAGING: Reviewed. MEDICATIONS: Reviewed. ASSESSMENT: 65 F - much better Acute on chronic hypoxic and hypercarbic respiratory failure Severe end stage pulm htn COPD exac Afib with RVR - converted to NSR currently Depression/anxiety GERD PLAN: Neurologic: stable. xanax prn. use prn morphine Cardiovascular: converted with amio. NSR. On cardizem dc. severe pulm htn and end stage lung dz the main drivers here. no ecg changes with dig level variations. Respiratory: COPD holding with high flow. Pulm htn quite a burden. d/w pt and her daughter yesterday and the associated dynamics of . giving more time to see if she can self rescue. palliative care needs Gastrointestinal: po diet. on H2 Renal/Metabolic: lytes ok. Infectious Disease: azithro for 5 days Hematology: stable. outpt anticoag needs Endocrine: steroids po Musculoskeletal: pt eval prn Psych/Social: zoloft. pt expresses understanding. Supportive and preventative care as ordered. SUP: po VTE prophylaxis: on full anticoag Disposition: ICU today Code Status: DNR/DNI Critical Care Time: 25min FRenita Griffin DO
[2016-08-11] MEDS: Morphine INJ* 2 MG/ML 1 ML SYRINGE IV PRN (16:26)
[2016-08-12] MEDS: Morphine INJ* 2 MG/ML 1 ML SYRINGE IV PRN (07:22)
[2016-08-12] MEDS: Sertraline* 50 MG TAB PO SCH (08:10)
[2016-08-12] MEDS: predniSONE TAB* 20 MG PO SCH (08:10)
[2016-08-12] MEDS: Mometasone/Formoter 200/5 MDI INH SCH ×2 (08:10→19:43)
[2016-08-12] MEDS: Azithromycin TAB* 250 MG PO SCH (08:10)
[2016-08-12] MEDS: Tiotropium CAP.INH* CAP.INH/18 MCG INH SCH (08:10)
[2016-08-12] MEDS: Rivaroxaban TAB(*) 20 MG TAB PO SCH (08:10)
[2016-08-12] MEDS: Famotidine TAB* 20 MG PO SCH (08:10)
[2016-08-12] MEDS: ALPRAZolam TAB* 0.5 MG PO PRN (09:51)
--- NOTE | 2016-08-12 10:32 | PN ---
Progress Note - Progress Note Date of Service: 08/12/16 Note: CRITICAL CARE MEDICINE DATE: 08/12/16 TIME: 1000 PHYSICAL EXAM: thin and frail. Vital Signs: Reviewed. Hr 100s, Sinus. 25L taken to 12L but with desats quickly. Neurologic: baseline. communicating but variable lethargy at times HEENT: anicteric Cardiovascular: tachy, +jvp with less dec with insp Respiratory: coarse and dry rales but without wheeze, weak excursion Abdomen: soft, nt Extremities: warm, dry skin. Access: per LABS: Reviewed. IMAGING: Reviewed. MEDICATIONS: Reviewed. ASSESSMENT: 65 F - failing again Acute on chronic hypoxic and hypercarbic respiratory failure Severe end stage pulm htn COPD exac Afib with RVR - converted to NSR Depression/anxiety GERD PLAN: Neurologic: stable. xanax prn. use prn morphine and start oral sl morphine for comfort Cardiovascular: severe pulm htn and end stage lung dz. vol status as it is. Respiratory: COPD failing and dep on high flow. Pulm htn severe burden; doubt PAH 1 tx rx would beneift her. palliative care needs Gastrointestinal: po diet. on H2 Renal/Metabolic: lytes ok. Infectious Disease: azithro for 5 days total for antiinflam benefit at best Hematology: stable. outpt anticoag needs continued Endocrine: steroids po Musculoskeletal: pt eval prn Psych/Social: zoloft. pt expresses understanding. Needs palliative discussion I did discussed with her my concerns that her briseyda continues to fail without much ability to thrive given her disease burden and potential mortality. Supportive and preventative care as ordered. SUP: po VTE prophylaxis: on full anticoag Disposition: ICU Code Status: DNR/DNI Critical Care Time: 25min Sincere Griffin DO
[2016-08-12] MEDS: Diltiazem CD CAP* 120 MG PO SCH (10:56)
--- NOTE | 2016-08-12 16:35 | CONSULT ---
Palliative / Hospice Consult Ordering Provider: Eliecer Griffin - Subjective Code Status: DNR Advance Directives Location: In Chart MOLST Part A Completed: Yes - DNR MOLST Part E Completed:: Yes - DNI but noninvasive OK - History or Present Illness History or Present Illness: Thispatient is a 66 ear old woman appearing much older than her stated age with a history of COPD, rapid A/Flutter, GERD, malnutrition and chronic pain with lumbar fractures. She was admitted 08/07/16 after several days of increasing dyspnea and wheezing and productive cough. She is normally on 4 LPM O2 at home. In the ER, she was found to be in hypoxic respiratory failure and required Vapotherm at 30 liters. She probably has a large component of cor pulmonale with a BNP of 2,644 on admission. At first she desired intubation and mechanical ventilation but then changed her MOLST to reflect willingness to have noninvasive ventilatory assistance. She has a 40+ pack year history of smoking but quit within the last year. She has poor appetite and weighs only 83 pounds, and her albumin is 3.5. Lab Values: Laboratory Last Values WBC 6.9 10^3/ul (3.5-10.8) 08/11/16 05:09 RBC 3.47 10^6/ul (4.0-5.4) L 08/11/16 05:09 Hgb 11.0 g/dl (12.0-16.0) L 08/11/16 05:09 Hct 34 % (35-47) L 08/11/16 05:09 MCV 97 fL (80-97) 08/11/16 05:09 MCH 32 pg (27-31) H 08/11/16 05:09 MCHC 33 g/dl (31-36) 08/11/16 05:09 RDW 14 % (10.5-15) 08/11/16 05:09 Plt Count 190 10^3/ul (150-450) 08/11/16 05:09 MPV 10 um3 (7.4-10.4) 08/11/16 05:09 Neut % (Auto) 89.2 % (38-83) H 08/08/16 21:20 Lymph % (Auto) 2.8 % (25-47) L 08/08/16 21:20 Chaves % (Auto) 7.7 % (1-9) 08/08/16 21:20 Eos % (Auto) 0 % (0-6) 08/08/16 21:20 Baso % (Auto) 0.3 % (0-2) 08/08/16 21:20 Absolute Neuts (auto) 9.3 10^3/ul (1.5-7.7) H 08/08/16 21:20 Absolute Lymphs (auto) 0.3 10^3/ul (1.0-4.8) L 08/08/16 21:20 Absolute Monos (auto) 0.8 10^3/ul (0-0.8) 08/08/16 21:20 Absolute Eos (auto) 0 10^3/ul (0-0.6) 08/08/16 21:20 Absolute Basos (auto) 0 10^3/ul (0-0.2) 08/08/16 21:20 Absolute Nucleated RBC 0 10^3/ul 08/08/16 21:20 Nucleated RBC % 0 08/08/16 21:20 INR (Anticoag Therapy) 2.40 (0.89-1.11) H 08/09/16 05:35 APTT 31.6 seconds (26.0-36.3) 08/08/16 21:20 Patient Temperature Not Reportable 08/07/16 19:27 ABG pH 7.37 (7.35-7.45) 08/07/16 19:27 ABG pCO2 34 mmHg (35-45) L 08/07/16 19:27 ABG pO2 70 mmHg (80-100) L 08/07/16 19:27 ABG HCO3 21.0 mmol/L (19-31) 08/07/16 19:27 ABG O2 Saturation 94.7 % (95-98) L 08/07/16 19:27 ABG Base Excess -4.8 (-2.0-2.0) L 08/07/16 19:27 Respiration Rate Not Reportable 08/07/16 19:27 O2 Delivery Device Nrb 08/07/16 19:27 Ventilator Type Not Reportable 08/07/16 19:27 Vent Mode Not Reportable 08/07/16 19:27 FiO2 100 08/07/16 19:27 Inspiratory Time Not Reportable 08/07/16 19:27 PEEP Not Reportable 08/07/16 19:27 Pressure Support Not Reportable 08/07/16 19:27 Pressure Control Not Reportable 08/07/16 19:27 EPAP Not Reportable 08/07/16 19:27 IPAP Not Reportable 08/07/16 19:27 BiPAP Not Reportable 08/07/16 19:27 Sodium 135 mmol/L (133-145) 08/11/16 05:09 Potassium 5.2 mmol/L (3.5-5.0) H 08/11/16 05:09 Chloride 100 mmol/L (101-111) L 08/11/16 05:09 Carbon Dioxide 37 mmol/L (22-32) H 08/11/16 05:09 Anion Gap 6 mmol/L (2-11) 08/08/16 21:20 BUN 39 mg/dL (6-24) H 08/11/16 05:09 Creatinine 0.45 mg/dL (0.51-0.95) L 08/11/16 05:09 Est GFR ( Amer) 179.3 (>60) 08/11/16 05:09 Est GFR (Non-Af Amer) 139.4 (>60) 08/11/16 05:09 BUN/Creatinine Ratio 86.7 (8-20) H 08/11/16 05:09 Glucose 129 mg/dL (70-100) H 08/11/16 05:09 Lactic Acid 1.1 mmol/L (0.5-2.0) 08/08/16 22:55 Calcium 9.7 mg/dL (8.6-10.3) 08/11/16 05:09 Phosphorus 3.1 mg/dL (2.5-5.0) 08/11/16 05:09 Magnesium 2.2 mg/dL (1.9-2.7) 08/11/16 05:09 Total Bilirubin 0.60 mg/dL (0.2-1.0) 08/08/16 21:20 AST 54 U/L (13-39) H 08/08/16 21:20 ALT 78 U/L (7-52) H 08/08/16 21:20 Alkaline Phosphatase 88 U/L (34-104) 08/08/16 21:20 Troponin I 0.05 ng/mL (<0.04) H* 08/08/16 21:20 C-Reactive Protein 86.95 mg/L (< 5.00) H 08/07/16 19:00 B-Natriuretic Peptide 1211 pg/mL (-100) H 08/09/16 05:35 Total Protein 6.7 g/dL (6.4-8.9) 08/08/16 21:20 Albumin 3.5 g/dL (3.2-5.2) 08/08/16 21:20 Globulin 3.2 g/dL (2-4) 08/08/16 21:20 Albumin/Globulin Ratio 1.1 (1-3) 08/08/16 21:20 Digoxin 2.1 ng/ml (0.8-2.0) H 08/09/16 11:33 - Objective Active Medications: Albuterol (Ventolin 2.5 Mg/3 Ml Neb.Erica*) 2.5 mg INH Q4H PRN PRN Reason: SOB/WHEEZING Last Admin: 08/12/16 09:20 Dose: 2.5 mg Alprazolam (Xanax Tab*) 0.5 mg PO TID PRN PRN Reason: ANXIETY Last Admin: 08/12/16 09:51 Dose: 0.5 mg Azithromycin (Zithromax Tab*) 250 mg PO DAILY [facility] Last Admin: 08/12/16 08:10 Dose: 250 mg Diltiazem HCl (Cardizem Cd Cap*) 120 mg PO DAILY [facility] Last Admin: 08/12/16 10:56 Dose: 120 mg Famotidine (Pepcid Tab*) 20 mg PO DAILY [facility] Last Admin: 08/12/16 08:10 Dose: 20 mg Mometasone Furoate/Formoterol Fumar (Dulera 200/5 Mdi*) 2 puff INH BID [facility] Last Admin: 08/12/16 08:10 Dose: 2 puff Morphine Sulfate (Morphine Inj (Syringe)*) 2 mg IV Q4H PRN PRN Reason: PAIN - MILD Last Admin: 08/12/16 07:22 Dose: 2 mg Morphine Sulfate (Morphine Oral Concentrate*) 2.5 mg SL Q2H PRN PRN Reason: SHORTNESS OF BREATH Prednisone (Deltasone Tab*) 20 mg PO DAILY [facility] Stop: 08/13/16 09:01 Last Admin: 08/12/16 08:10 Dose: 20 mg Rivaroxaban (Xarelto (*)) 20 mg PO DAILY [facility] Last Admin: 08/12/16 08:10 Dose: 20 mg Sertraline HCl (Zoloft*) 50 mg PO DAILY [facility] Last Admin: 08/12/16 08:10 Dose: 50 mg Tiotropium [place] (Spiriva Cap.Inh*) 1 cap INH DAILY [facility] Last Admin: 08/12/16 08:10 Dose: 1 cap Vital Signs: Vital Signs: Temp Pulse Resp BP Pulse Ox 98.3 F 98 18 100/65 98 08/12/16 15:11 08/12/16 15:00 08/12/16 15:00 08/12/16 15:00 08/12/16 15:00 Patient Weight: Weight 83 lb 12.41 oz Intake and Output: Intake & Output 08/10/16 08/11/16 08/12/16 08/13/16 06:59 06:59 06:59 06:59 Intake Total 423.3 557 390 250 Output Total 550 990 900 225 Balance -126.7 -433 -510 25 Weight 85 lb 8.63 oz 84 lb 14.047 oz 83 lb 12.41 oz Intake: Medicated IV 23.3 GEN - Diltiazem/Cardizem 23.3 Oral 400 557 390 250 Output: Urine 300 [place]on[place] 550 690 900 225 Other: Estimated Void Large # Voids 1 ADLs: Meal Record Start: 08/07/16 20: 25 Freq: 09,13,18 Status: Active Created 08/07/16 20:25 System (Rec: 08/07/16 20:25 System -M08) Document 08/08/16 09:00 [id number] (Rec: 08/08/16 09:50 [id number] ICU-C07) Document 08/08/16 13:00 [id number] (Rec: 08/08/16 13:48 [id number] ICU-C07) Document 08/08/16 18:00 [id number] (Rec: 08/08/16 18:07 [id number] ICU-C07) Document 08/09/16 09:20 [id number] (Rec: 08/09/16 09:25 [id number] [facility] [place] Document 08/09/16 14:14 [id number] (Rec: 08/09/16 14:14 [id number] ICU-M20) Document 08/09/16 18:10 [id number] (Rec: 08/09/16 18:11 [id number] ICU-C07) Document 08/10/16 09:00 [id number] (Rec: 08/10/16 09:24 [id number] ICU-C07) Document 08/10/16 13:00 [id number] (Rec: 08/10/16 13:27 [id number] ICU-C07) Document 08/10/16 18:00 [id number] (Rec: 08/10/16 18:38 [id number] ICU-C14) Document 08/11/16 09:00 [id number] (Rec: 08/11/16 16:16 [id number] ICU-C06) Document 08/11/16 13:00 [id number] (Rec: 08/11/16 16:17 [id number] ICU-C06) Document 08/11/16 18:00 [id number] (Rec: 08/11/16 21:40 [id number] ICU-C06) Document 08/12/16 09:00 [id number] (Rec: 08/12/16 11:10 [id number] ICU-C06) Document 08/12/16 13:00 [id number] (Rec: 08/12/16 13:04 [id number] ICU-C16) Intake and Output Start: 08/07/16 18: 57 Freq: Status: Active Created 08/07/16 18:57 System (Rec: 08/07/16 18:57 System ED-C24) Intake and Output Start: 08/07/16 20: 25 Freq: 06,14,22 Status: Active Created 08/07/16 20:25 System (Rec: 08/07/16 20:25 System ED-M08) Document 08/07/16 22:00 [id number] (Rec: 08/07/16 22:49 [id number] ICU-C07) Document 08/08/16 00:38 [id number] (Rec: 08/08/16 00:38 [id number] ICU-C14) Document 08/08/16 05:32 [id number] (Rec: 08/08/16 05:32 [id number] ICU-C14) Document 08/08/16 14:00 [id number] (Rec: 08/08/16 15:11 [id number] ICU-C07) Document 08/08/16 20:00 [id number] (Rec: 08/09/16 02:17 [id number] ICU-C06) Document 08/08/16 22:00 [id number] (Rec: 08/08/16 22:00 [id number] ICU-C07) Document 08/08/16 22:00 [id number] (Rec: 08/09/16 02:17 [id number] ICU-C06) Document 08/08/16 23:00 [id number] (Rec: 08/09/16 02:18 [id number] ICU-C06) Document 08/09/16 01:00 [id number] (Rec: 08/09/16 02:17 [id number] ICU-C06) Document 08/09/16 05:34 [id number] (Rec: 08/09/16 05:35 [id number] ICU-C06) Document 08/09/16 14:12 [id number] (Rec: 08/09/16 14:13 [id number] ICU-M20) Document 08/09/16 14:30 [id number] (Rec: 08/09/16 14:30 [id number] ICU-M20) Document 08/10/16 06:00 [id number] (Rec: 08/10/16 06:32 [id number] ICU-C06) Document 08/10/16 14:00 [id number] (Rec: 08/10/16 15:14 [id number] ICU-C07) Document 08/10/16 22:00 [id number] (Rec: 08/10/16 23:12 [id number] ICU-C07) Document 08/11/16 05:49 [id number] (Rec: 08/11/16 05:52 [id number] ICU-C06) Document 08/11/16 22:00 [id number] (Rec: 08/11/16 22:50 [id number] ICU-C06) Document 08/12/16 05:38 [id number] (Rec: 08/12/16 05:38 [id number] ICU-C06) Document 08/12/16 14:00 [id number] (Rec: 08/12/16 14:04 [id number] ICU-C16) General Impression: Elderly-appearing woman lying in bed with poor color and stable VS at present. Head: Symmetrical Eyes: No Scleral Icterus Ears/Nose/Mouth/Throat: Clear Oropharnyx Neck: Trachea Midline Cardiovascular: NL Sounds; No Murmurs; No JVD Respiratory: Symmetrical Chest Expansion and Respiratory Effort Abdominal: NL Sounds; No Tenderness; No Distention Extremities: No Edema, - - Prominent clubbing, especially her feet. Neurological: Alert and Oriented x 3, - - Somewhat drowsy but appropriate. - Assessment Assessment: When I visited the patient she was alone in her room and asleep. She was easily aroused but remained drowsy through out the interview and exam. She was appropriate in her answers and questions. When asked if she would like to be able to remain at home rather than return to the hospital, having weekly nurse visits to assess her status and coordinate her care, she was very agreeable. She qualifies for home hospice with a primary diagnosis of end stage COPD and a secondary of hypoxic respiratory failure, comorbid cor pulmonale. I called her daughter, Verenice, the alternate HCP, but was unable to reach her son, Kalpesh, her HCP. I left my number for them to call me when possible. Thanks for asking for palliative input in this case. - Plan Consult Plan (MU): Hospice - Time On Unit Date of Evaluation: 08/12/16 Hospice Consult Time in: 16:15 Hospice Consult Time Out: 16:55 Hospice Consult Time Total: 40 > 50% of Time Spend In Counseling or Coordinating Care: Yes
[2016-08-13] MEDS: ALPRAZolam TAB* 0.5 MG PO PRN (00:51)
[2016-08-13 05:41] LABS: Hematocrit 36 % (35-47); Hemoglobin 11.8 g/dl (12.0-16.0); Mean Corpuscular HGB Conc 33 g/dl (31-36); Mean Corpuscular Hemoglobin 31 pg (27-31); Mean Corpuscular Volume 96 fL (80-97); Mean Platelet Volume 9 um3 (7.4-10.4); Red Blood Count 3.74 10^6/ul (4.0-5.4); Red Cell Distribution Width 14 % (10.5-15); White Blood Count 11.1 10^3/ul (3.5-10.8)
[2016-08-13 06:00] LABS: BUN/Creatinine Ratio 79.4 (8-20); Blood Urea Nitrogen 27 mg/dL (6-24); Calcium 9.3 mg/dL (8.6-10.3); Chloride 95 mmol/L (101-111); EGFR African American 247.7 (>60); EGFR Non-African American 192.6 (>60); Glucose 95 mg/dL (70-100); Magnesium 2.1 mg/dL (1.9-2.7); Phosphorus 3.2 mg/dL (2.5-5.0); Potassium 4.4 mmol/L (3.5-5.0); Sodium 138 mmol/L (133-145)
[2016-08-13 06:02] LABS: CO2 Carbon Dioxide 43 mmol/L (22-32)
[2016-08-13] MEDS: Rivaroxaban TAB(*) 20 MG TAB PO SCH (07:55)
[2016-08-13] MEDS: predniSONE TAB* 20 MG PO SCH (07:56)
[2016-08-13] MEDS: Azithromycin TAB* 250 MG PO SCH (07:56)
[2016-08-13] MEDS: Mometasone/Formoter 200/5 MDI INH SCH ×2 (07:56→19:52)
[2016-08-13] MEDS: Famotidine TAB* 20 MG PO SCH (07:56)
[2016-08-13] MEDS: Sertraline* 50 MG TAB PO SCH (07:56)
[2016-08-13] MEDS: Tiotropium CAP.INH* CAP.INH/18 MCG INH SCH (07:57)
--- NOTE | 2016-08-13 08:54 | PN ---
Progress Note - Progress Note Date of Service: 08/13/16 Note: CRITICAL CARE MEDICINE DATE: 08/13/16 TIME: 720 PHYSICAL EXAM: thin and frail. Vital Signs: Reviewed. Hr still 100s, Sinus. 30L Neurologic: baseline. communicating but variable lethargy at times still HEENT: anicteric Cardiovascular: tachy Respiratory: coarse and dry rales but more comfortable on higher flow Abdomen: soft, nt Extremities: warm, dry skin. Access: per LABS: Reviewed. IMAGING: Reviewed. MEDICATIONS: Reviewed. ASSESSMENT: 65 F - failing Acute on chronic hypoxic and hypercarbic respiratory failure Severe end stage pulm htn COPD exac Afib with RVR - converted to NSR Depression/anxiety GERD PLAN: dying. inability to thrive. No reversibility seen. Continued HFO2 support and see if we can achieve comfortable amount of O2 over the next few days in order to advance her to home with hospice vs needing more inpt palliative approach here. Trying to allow her body to decide. More time. morphine, xanax as needed. will discuss no use of niv for molst; although wouldn't use at this juncture anyway. Supportive and preventative care as ordered. SUP: po VTE prophylaxis: on full anticoag and can discuss discontinuance soon Disposition: ICU Code Status: DNR/DNI Critical Care Time: 25min Sincere Griffin DO
[2016-08-13] MEDS: Diltiazem CD CAP* 120 MG PO SCH ×2 (12:57→17:17)
[2016-08-13] MEDS: Morphine INJ* 2 MG/ML 1 ML SYRINGE IV PRN ×2 (15:07→19:54)
[2016-08-14] MEDS: Azithromycin TAB* 250 MG PO SCH (07:37)
[2016-08-14] MEDS: Rivaroxaban TAB(*) 20 MG TAB PO SCH (07:37)
[2016-08-14] MEDS: Famotidine TAB* 20 MG PO SCH (07:37)
[2016-08-14] MEDS: Diltiazem CD CAP* 120 MG PO SCH (07:37)
[2016-08-14] MEDS: ALPRAZolam TAB* 0.5 MG PO PRN (07:38)
[2016-08-14] MEDS: Sertraline* 50 MG TAB PO SCH (07:38)
[2016-08-14] MEDS: Tiotropium CAP.INH* CAP.INH/18 MCG INH SCH (09:05)
[2016-08-14] MEDS: Mometasone/Formoter 200/5 MDI INH SCH ×2 (09:05→19:56)
--- NOTE | 2016-08-14 10:26 | PN ---
Progress Note - Progress Note Date of Service: 08/14/16 Note: CRITICAL CARE MEDICINE DATE: 08/13/16 TIME: 900 SUBJECTIVE: Patient seen and examined. No complaints from her but knows she is tired. PHYSICAL EXAM: thin and frail. Vital Signs: Reviewed. Hr 100s, 15L Neurologic: baseline. communicating; fatigued HEENT: anicteric Cardiovascular: tachy Respiratory: coarse dry rales Abdomen: soft, nt Extremities: warm, dry Access: per LABS: Reviewed. IMAGING: Reviewed. MEDICATIONS: Reviewed. ASSESSMENT: 65 F Acute on chronic hypoxic and hypercarbic respiratory failure Severe end stage pulm htn COPD exac Afib with RVR - converted to NSR Depression/anxiety GERD Failure to thrive PLAN: still fading with inability to thrive. No reversibility seen. Discussed again with pt. Explained where her dynamics are and how we still have to push her some in order to dec O2 needs in order to achieve home with hospice. Explained we should work towards that goal this but if unable to achieve or if sx worsen then we should escalate her comfort needs in hospital. She expressed understanding. Palliative f/u and considering home hospice on wednesday if able. Supportive and preventative care as ordered. SUP: po; although intake poor VTE prophylaxis: on full anticoag as is Disposition: ICU sec to HFo2 Code Status: DNR/DNI Critical Care Time: 25min Sincere Griffin DO
[2016-08-14] MEDS: Morphine INJ* 2 MG/ML 1 ML SYRINGE IV PRN (18:37)
[2016-08-15] MEDS: Morphine INJ* 2 MG/ML 1 ML SYRINGE IV PRN ×3 (05:46→17:53)
[2016-08-15] MEDS: Mometasone/Formoter 200/5 MDI INH SCH ×2 (07:35→19:25)
[2016-08-15] MEDS: Tiotropium CAP.INH* CAP.INH/18 MCG INH SCH (07:35)
[2016-08-15] MEDS: Rivaroxaban TAB(*) 20 MG TAB PO SCH (08:13)
[2016-08-15] MEDS: Diltiazem CD CAP* 120 MG PO SCH (08:13)
[2016-08-15] MEDS: Famotidine TAB* 20 MG PO SCH (08:13)
[2016-08-15] MEDS: Sertraline* 50 MG TAB PO SCH (08:13)
--- NOTE | 2016-08-15 10:25 | PN ---
Progress Note - Progress Note Date of Service: 08/15/16 Note: CRITICAL CARE MEDICINE DATE: 08/14/16 TIME: 910 SUBJECTIVE: Patient seen and examined. PHYSICAL EXAM: thin and frail. Vital Signs: Reviewed. Hr 100s, 15L Neurologic: baseline. communicating; fatigued HEENT: anicteric Cardiovascular: tachy Respiratory: coarse dry rales Abdomen: soft, nt Extremities: warm, dry Access: per LABS: Reviewed. IMAGING: Reviewed. MEDICATIONS: Reviewed. ASSESSMENT: 65 F Acute on chronic hypoxic and hypercarbic respiratory failure Severe end stage pulm htn COPD exac Afib with RVR - converted to NSR Depression/anxiety GERD Failure to thrive PLAN: unable to improve. we discussed starting atc morphine and utilize prn and prn xanax still. discussed ensuring her comfort and seeing if we can titrate O2 to reasonable level for disposition home with hospice come wednesday/wednesday. Need to halt her episodic desats and subjective sx as well as able prior to dispo. continued support and care. Dec checks. Supportive and preventative care as ordered. SUP: po VTE prophylaxis: on full anticoag as is and would not aniticipate this continuing on disposition Disposition: ICU sec to HFo2; acuity 4 Code Status: DNR/DNI Critical Care Time: 22min Sincere Griffin DO
[2016-08-15] MEDS: oxyCODONE SR TAB(*) 10 MG TAB.SR PO SCH ×2 (11:11→21:53)
[2016-08-16] MEDS: Mometasone/Formoter 200/5 MDI INH SCH ×2 (07:57→21:32)
[2016-08-16] MEDS: Tiotropium CAP.INH* CAP.INH/18 MCG INH SCH (07:57)
[2016-08-16] MEDS: oxyCODONE SR TAB(*) 10 MG TAB.SR PO SCH ×2 (08:49→21:32)
[2016-08-16] MEDS: Rivaroxaban TAB(*) 20 MG TAB PO SCH (08:50)
[2016-08-16] MEDS: Famotidine TAB* 20 MG PO SCH (08:50)
[2016-08-16] MEDS: Sertraline* 50 MG TAB PO SCH (08:50)
[2016-08-16] MEDS: Diltiazem CD CAP* 120 MG PO SCH (08:50)
--- NOTE | 2016-08-16 10:39 | PN ---
Progress Note - Progress Note Date of Service: 08/16/16 Note: CRITICAL CARE MEDICINE DATE: 08/15/16 TIME: 1000 SUBJECTIVE: Patient seen and examined. PHYSICAL EXAM: thin and frail. Vital Signs: Reviewed. Hr 100s, 20L Neurologic: baseline. communicating; fatigued HEENT: anicteric Cardiovascular: tachy Respiratory: coarse dry rales Abdomen: soft, nt Extremities: warm, dry Access: per LABS: Reviewed. IMAGING: Reviewed. MEDICATIONS: Reviewed. ASSESSMENT: 65 F Acute on chronic hypoxic and hypercarbic respiratory failure Severe end stage pulm htn COPD exac Afib with RVR - converted to NSR Depression/anxiety GERD Failure to thrive PLAN: discussed with her at length again. still with symptomatic sob at times. plan for rest and work today and then tomorrow to take O2 to 6-10L for an appropriate home dose - permit desat and see if we can titrate meds as needed for comfort. She states anxiety is still and issue and will start bid ativan to see if there can be a benefit and utilize prn xanax. SUP: po VTE prophylaxis: on full anticoag and aniticipate this not continuing on disposition as d/w pt Disposition: ICU sec to HFo2; acuity 4 Code Status: DNR/DNI Critical Care Time: 23min Sincere Griffin DO
[2016-08-16] MEDS: LORazepam TAB(*) 1 MG PO SCH ×2 (11:58→21:31)
[2016-08-17] MEDS: Mometasone/Formoter 200/5 MDI INH SCH ×2 (07:17→19:53)
[2016-08-17] MEDS: Tiotropium CAP.INH* CAP.INH/18 MCG INH SCH (07:17)
[2016-08-17] MEDS: LORazepam TAB(*) 1 MG PO SCH ×3 (08:34→21:50)
[2016-08-17] MEDS: Sertraline* 50 MG TAB PO SCH (08:35)
[2016-08-17] MEDS: Diltiazem CD CAP* 120 MG PO SCH (08:35)
[2016-08-17] MEDS: oxyCODONE SR TAB(*) 10 MG TAB.SR PO SCH ×2 (08:35→20:37)
[2016-08-17] MEDS: Famotidine TAB* 20 MG PO SCH (08:35)
[2016-08-17] MEDS: Rivaroxaban TAB(*) 15 MG PO SCH (08:41)
--- NOTE | 2016-08-17 10:37 | PN ---
Progress Note - Progress Note Date of Service: 08/17/16 Note: CRITICAL CARE MEDICINE DATE: 08/17/16 TIME: 900 SUBJECTIVE: Patient seen and examined. PHYSICAL EXAM: thin and frail. Vital Signs: Reviewed. Hr 100s, 15 to 10L Neurologic: baseline. communicating; lethargic HEENT: anicteric Cardiovascular: tachy Respiratory: coarse dry rales; excursion ok and not distressed Abdomen: soft, nt Extremities: warm, dry Access: per LABS: Reviewed. IMAGING: Reviewed. MEDICATIONS: Reviewed. ASSESSMENT: 65 F Acute on chronic hypoxic and hypercarbic respiratory failure Severe end stage pulm htn COPD exac Afib with RVR - converted to NSR Depression/anxiety GERD Failure to thrive PLAN: better appearance with adequete sedative and comfort measure controls. Will place on 6L O2 and lack sat parameters and follow for subjective sx utilize rx as is. plan for hospice tomorrow if able to maintain on less O2 with sx control vs needing titration while here. Family updated at bedside. SUP: po VTE prophylaxis: on full anticoag and aniticipate this not continuing on disposition as d/w pt Disposition: ICU sec to HFo2; acuity 4 Code Status: DNR/DNI Critical Care Time: 24min Sincere Griffin DO
[2016-08-17] MEDS: Morphine ORAL CONCENTRATE* 5 MG/0.25 ML ORAL.SYRIN SL PRN ×5 (13:29→23:20)
--- NOTE | 2016-08-17 14:33 | PN ---
Work Excuse - Work Note Work Note: August 17, 2016 Work Note To whom it may concern, Adali Costa, mother of Debby Taylor, has been under my care since August, critically ill in the intensive care unit at [facility]. Family presence was requested and care is ongoing. Please allow this to document to serve as validation. Sincerely, Sincere Griffin DO Forensics Team Director Critical Care Medicine [facility] [address] [facility] [address] [address] Griffin DO [id number]
--- NOTE | 2016-08-17 14:49 | PN ---
Work Excuse - Work Note Work Note: August 17, 2016 Work Note To whom it may concern, Adali Costa, mother of Verenice Oliveira, has been under my care since August 10, 2016, critically ill in the intensive care unit at [facility]. Family presence was requested and care is ongoing. Please allow this to document to serve as validation. Sincerely, Sincere Griffin DO Triple Valve Tester Critical Care Medicine [address] [facility] [address] [address] Griffin DO [id number]
[2016-08-17] MEDS: ALPRAZolam TAB* 0.5 MG PO PRN (23:33)
[2016-08-18] MEDS: Morphine ORAL CONCENTRATE* 5 MG/0.25 ML ORAL.SYRIN SL PRN ×2 (01:33→03:27)
[2016-08-18] MEDS: ALPRAZolam TAB* 0.5 MG PO PRN (05:29)
[2016-08-18] MEDS ORDERED: Morphine INJ* 2 MG/ML 1 ML SYRINGE IV PRN (06:09)
--- NOTE | 2016-08-18 06:10 | PN ---
Progress Note - Progress Note Date of Service: 08/18/16 Note: Paged for increase work of breathing and concern for imminent expiration. Family called and at the bedside. IV morphine ordered.
[2016-08-18 08:51] VITALS: BP 65/35
[2016-08-18] MEDS: Famotidine TAB* 20 MG PO SCH (09:08)
[2016-08-18] MEDS: Mometasone/Formoter 200/5 MDI INH SCH (09:08)
[2016-08-18] MEDS: LORazepam TAB(*) 1 MG PO SCH (09:08)
[2016-08-18] MEDS: Diltiazem CD CAP* 120 MG PO SCH (09:08)
[2016-08-18] MEDS: Rivaroxaban TAB(*) 15 MG PO SCH (09:09)
[2016-08-18] MEDS: oxyCODONE SR TAB(*) 10 MG TAB.SR PO SCH (09:09)
[2016-08-18] MEDS: Sertraline* 50 MG TAB PO SCH (09:09)
[2016-08-18] MEDS: Tiotropium CAP.INH* CAP.INH/18 MCG INH SCH (10:32)
--- NOTE | 2016-08-18 10:38 | PN ---
Progress Note - Progress Note Date of Service: 08/18/16 Note: CRITICAL CARE MEDICINE DATE: 08/18/16 TIME: 930 SUBJECTIVE: Patient seen and examined. family at bedside. PHYSICAL EXAM: dying. Vital Signs: Reviewed. Hr 60s, 10L O2 Neurologic: comatose Cardiovascular: distant, dima Respiratory: dec excursion, dec bs Abdomen: soft Extremities: cool and cyanotic LABS: No new. IMAGING: No new MEDICATIONS: Reviewed. ASSESSMENT: 65 F dying Acute on chronic hypoxic and hypercarbic respiratory failure Severe end stage pulm htn COPD exac Afib with RVR - converted to NSR Depression/anxiety GERD Failure to thrive PLAN: comfort care in place. relayed to family that she will not be making it to oupt hospice and that she would likely pass in the next hour. support offered. pt comfortable with prn morphine. ensure comfort. family expressed understanding Disposition: dying, acuity 5 Code Status: DNR/DNI Critical Care Time: 20min Sincere Griffin DO
--- NOTE | 2016-08-18 10:51 | DS ---
CRITICAL CARE MEDICINE DISCHARGE SUMMARY ADMISSION DATE: 08/07/2016 ICU ADMISSION DATE: 08/07/2016 ICU DISCHARGE DATE: 08/17/2016 PRIMARY CARE PROVIDER: Saira. REFERRING PHYSICIAN: Ophelia. DIAGNOSIS: 1. Acute on chronic hypoxic and hypercarbic respiratory failure. 2. Severe end stage pulmonary hypertension with pulmonary artery pressures greater then 120. 3. Chronic obstructive pulmonary disease exacerbation. 4. Atrial fibrillation with rapid ventricular response on admission. 5. Depression. 6. Anxiety disorder. MEDICATIONS AT DISCHARGE: None. ALLERGIES: None. HOSPITAL COURSE: 66 year old female with extensive tobacco abuse history and episodes of acute on chronic hypoxic and hypercarbic respiratory failure previous with recent declining cor pulmonale and chronic obstructive pulmonary disease exacerbation admitted for therapy. Placed on high flow theapy early in her course and treatment for exacerbation. No infective burden identified yet treatment with adjunctive antibiotics. Fluid balance attempts given her cardiac dynamics were made and medication adjustments, and yet patient was unable to thrive. She has been on full dose anticoagulation continued yet her cor pulmonale was worsening. Palliative care was involved and patient desired to see if she could improve enough to reach home with hospice. Arrangements were being made but patient was unable to improve enough to make the trip and comfortable with family present in the intensive care unit. DISPOSITION: . Critical Care Time: Sincere Griffin DO
== END 2016-08-18 10:14 | disposition expired | DRG 189 ==
LOC: ED 18:49 → ICU 19:55
PROVIDERS: ADMIT Internal Medicine; ATTEND Internal Medicine Critical Care Medicine
DX: J96.21 Acute and chronic respiratory failure with hypoxia (principal); E44.0 Moderate protein-calorie malnutrition; I27.2 Other secondary pulmonary hypertension; I48.92 Unspecified atrial flutter; I48.91 Unspecified atrial fibrillation; Z99.81 Dependence on supplemental oxygen; I11.0 Hypertensive heart disease with heart failure; I50.9 Heart failure, unspecified; J44.1 Chronic obstructive pulmonary disease with (acute) exacerbation; F32.9 Major depressive disorder, single episode, unspecified; Z68.1 Body mass index [BMI] 19.9 or less, adult; J96.22 Acute and chronic respiratory failure with hypercapnia; F41.9 Anxiety disorder, unspecified; K21.9 Gastro-esophageal reflux disease without esophagitis; G89.29 Other chronic pain; M54.9 Dorsalgia, unspecified; Z66 Do not resuscitate; F41.0 Panic disorder [episodic paroxysmal anxiety]; R40.2412 Glasgow coma scale score 13-15, at arrival to emergency department; R62.7 Adult failure to thrive; Z51.5 Encounter for palliative care; I27.81 Cor pulmonale (chronic); Z79.01 Long term (current) use of anticoagulants; Z87.891 Personal history of nicotine dependence; Z80.3 Family history of malignant neoplasm of breast; Z98.51 Tubal ligation status; Z82.49 Family history of ischemic heart disease and other diseases of the circulatory system
CPT/HCPCS: 36415; 36600; 71010; 80048; 80053; 80162; 82803; 83605; 83735; 83880; 84100; 84484; 85025; 85027; 85610; 85730; 86140; 87040; 87641; 93005; 93306; 94640; 94760; A9270-GY; J0153; J1160; J1956; J2270; J2920; J2930; J7512